=== PATIENT | male | born 1940 | race Caucasian/White ===

== ENCOUNTER → 2016-10-16 12:20 | Outpatient (CLI) | payer MEDICARE, OTHER ==
[2010-06-03 06:28] VITALS: BMI 34.0
== END | disposition home or self-care (01) ==
LOC: D.RT 12:20
DX: J44.9 Chronic obstructive pulmonary disease, unspecified (principal)

== ENCOUNTER → 2016-11-26 19:28 | Outpatient (CLI) | payer MEDICARE, OTHER ==
[2010-06-03 06:28] VITALS: BMI 34.0
== END | disposition home or self-care (01) ==
LOC: D.SLEEP 19:28
DX: G47.33 Obstructive sleep apnea (adult) (pediatric) (principal)

== ENCOUNTER 2017-07-11 14:52 | Inpatient (IN) | payer MEDICARE, OTHER ==
[~2017-07-11] VITALS: Ht 172.7 cm; Wt 101.2 kg
[2017-07-11 16:07] LABS: BASOPHILS 0.2 % (0-2); EOSINOPHILS 1.5 % (0-7); HEMATOCRIT 25.3 % (42.0-54.0); HEMOGLOBIN 7.7 g/dL (13.5-17.5); IMMATURE GRANULOCYTES 0.2 % (0-5); LYMPHOCYTES 11.6 % (15-50); MCH 28.6 pg (26.0-34.0); MCHC 30.4 g/dL (31.0-37.0); MCV 94.1 fL (80.0-100.0); MEAN PLATELET VOLUME 9.1 fL (7.4-10.4); MONOCYTES 13.5 % (2-11); PLATELET COUNT 228 10x3/uL (130-400); RBC 2.69 10x6/uL (4.20-6.10); RDW 13.7 % (11.5-14.5); WBC 5.4 10x3/uL (4.8-10.8)
[2017-07-11 16:32] LABS: ALBUMIN 3.2 g/dL (3.4-5.0); ANION GAP 6.1 mmol/L (8-16); BILIRUBIN - TOTAL 0.29 mg/dL (0.2-1.3); CALCIUM 8.7 mg/dL (8.5-10.1); CARBON DIOXIDE 39.1 mmol/L (21.0-32.0); CREATININE - SERUM 1.1 mg/dL (0.6-1.3); POTASSIUM - SERUM 4.2 mmol/L (3.5-5.1); PROTEIN - SERUM 6.7 g/dL (6.4-8.2)
[2017-07-11 16:33] LABS: APPEARANCE CLEAR (CLEAR); BILIRUBIN NEGATIVE (NEGATIVE); COLOR YELLOW (YELLOW); GLUCOSE NEGATIVE (NEGATIVE); KETONE NEGATIVE (NEGATIVE); NITRITE NEGATIVE (NEGATIVE); PH 6.5 (5.0-6.0); PROTEIN NEGATIVE (NEGATIVE); UROBILINOGEN NORMAL (NORMAL)
[2017-07-11 16:37] LABS: APTT 26.7 SECONDS (22.8-39.4); INR 1.25 (0.85-1.17); PROTIME 15.2 SECONDS (11.6-15.0)
[2017-07-11] MEDS ORDERED: PULMICORT0.5 MG/21 INH (19:46)
[2017-07-11] MEDS ORDERED: IPRAT-ALBUT 0.5-3 ML UPD (19:47)
[2017-07-11] MEDS ORDERED: VENTOLIN HFA18 GM INH (19:48)
[2017-07-11] MEDS ORDERED: PLAQUENIL200 MG PO ×2 (19:49)
[2017-07-11] MEDS ORDERED: HYZAAR 50-12.51 TAB PO (19:50)
[2017-07-11] MEDS ORDERED: RELAFEN500 MG PO (19:50)
[2017-07-11] MEDS ORDERED: PREDNISONE5 MG PO (19:51)
[2017-07-11] MEDS ORDERED: PRAVACHOL40 MG PO (19:51)
[2017-07-11] MEDS ORDERED: METAMUCIL1042 GM PO (19:53)
[2017-07-11] MEDS ORDERED: MIRALAX527 GM PO (19:53)
[2017-07-11] MEDS ORDERED: PACERONE100 MG PO (19:55)
[2017-07-11] MEDS ORDERED: MUCINEX DM ER1 EAC1 PO (19:55)
[2017-07-11] MEDS ORDERED: CARDIZEM30 MG PO (19:57)
[2017-07-11] MEDS ORDERED: ELIQUIS5 MG PO (19:58)
[2017-07-11 20:16] VITALS: BP 132/65; BMI 34.0
[2017-07-11 21:00] VITALS: BP 115/85
[2017-07-11 21:57] LABS: HEMATOCRIT 23.1 % (42.0-54.0)
[2017-07-11 21:58] LABS: HEMOGLOBIN 7.1 g/dL (13.5-17.5)
[2017-07-11 22:00] VITALS: BP 127/59
[2017-07-11 23:00] VITALS: BP 109/53
[2017-07-12] VITALS (12 sets, daily range): BP systolic 103–139; BP diastolic 45–83
[2017-07-12 03:27] LABS: HEMATOCRIT 26.2 % (42.0-54.0); HEMOGLOBIN 8.1 g/dL (13.5-17.5)
[2017-07-12 03:35] LABS: INR 1.18 (0.85-1.17); PROTIME 14.6 SECONDS (11.6-15.0)
[2017-07-12 09:59] LABS: HEMATOCRIT 27.2 % (42.0-54.0); HEMOGLOBIN 8.4 g/dL (13.5-17.5)
[2017-07-12 15:05] LABS: HEMOGLOBIN 8.1 g/dL (13.5-17.5)
[2017-07-12 22:05] LABS: HEMATOCRIT 24.2 % (42.0-54.0)
[2017-07-12 22:08] LABS: HEMOGLOBIN 7.5 g/dL (13.5-17.5)
[2017-07-13] VITALS (12 sets, daily range): BP systolic 101–146; BP diastolic 44–70; Ht 172.7 cm; Wt 101.2 kg
[2017-07-13 04:28] LABS: HEMATOCRIT 26.4 % (42.0-54.0); HEMOGLOBIN 8.1 g/dL (13.5-17.5)
[2017-07-13 04:37] LABS: APTT 25.7 SECONDS (22.8-39.4); INR 1.12 (0.85-1.17)
[2017-07-13 09:54] LABS: HEMATOCRIT 25.8 % (42.0-54.0)
[2017-07-13 10:08] LABS: BASOPHILS 0.2 % (0-2); EOSINOPHILS 2.3 % (0-7); IMMATURE GRANULOCYTES 0.2 % (0-5); LYMPHOCYTES 13.4 % (15-50); MCH 28.4 pg (26.0-34.0); MCHC 30.9 g/dL (31.0-37.0); MEAN PLATELET VOLUME 9.3 fL (7.4-10.4); MONOCYTES 11.7 % (2-11); NEUTROPHILS 72.2 % (40-80); PLATELET COUNT 203 10x3/uL (130-400); RBC 2.82 10x6/uL (4.20-6.10); RDW 14.5 % (11.5-14.5); WBC 6.5 10x3/uL (4.8-10.8)
[2017-07-13 10:17] LABS: ALBUMIN 2.7 g/dL (3.4-5.0); ANION GAP 5.8 mmol/L (8-16); BILIRUBIN - TOTAL 0.3 mg/dL (0.2-1.3); CALCIUM 8.3 mg/dL (8.5-10.1); CARBON DIOXIDE 39.1 mmol/L (21.0-32.0); CREATININE - SERUM 1.2 mg/dL (0.6-1.3); POTASSIUM - SERUM 3.9 mmol/L (3.5-5.1); PROTEIN - SERUM 6.1 g/dL (6.4-8.2)
[2017-07-13 10:20] LABS: MCV 91.8 fL (80.0-100.0)
[2017-07-13 15:29] LABS: HEMATOCRIT 25.8 % (42.0-54.0); HEMOGLOBIN 7.9 g/dL (13.5-17.5)
[2017-07-13 21:38] LABS: HEMATOCRIT 24.6 % (42.0-54.0); HEMOGLOBIN 7.6 g/dL (13.5-17.5)
[2017-07-14] VITALS: BP 112/61
[2017-07-14 04:00] VITALS: BP 117/49
[2017-07-14 05:29] LABS: BASOPHILS 0.2 % (0-2); EOSINOPHILS 2.4 % (0-7); HEMATOCRIT 23.9 % (42.0-54.0); IMMATURE GRANULOCYTES 0.2 % (0-5); LYMPHOCYTES 21.2 % (15-50); MCH 27.5 pg (26.0-34.0); MCHC 29.7 g/dL (31.0-37.0); MCV 92.6 fL (80.0-100.0); MEAN PLATELET VOLUME 9.3 fL (7.4-10.4); MONOCYTES 19.7 % (2-11); NEUTROPHILS 56.3 % (40-80); PLATELET COUNT 186 10x3/uL (130-400); RBC 2.58 10x6/uL (4.20-6.10); RDW 14.2 % (11.5-14.5)
[2017-07-14 05:42] LABS: WBC 4.6 10x3/uL (4.8-10.8)
[2017-07-14 05:43] LABS: HEMOGLOBIN 7.1 g/dL (13.5-17.5)
[2017-07-14 05:48] LABS: ALBUMIN 2.5 g/dL (3.4-5.0); ALKALINE PHOSPHATASE 54 U/L (46-116); ALT (SGPT) 26 U/L (10-68); BILIRUBIN - TOTAL 0.23 mg/dL (0.2-1.3); CALC OSMOLALITY 288 mosm/kg (275-300); CALCIUM 7.6 mg/dL (8.5-10.1); CARBON DIOXIDE 39.5 mmol/L (21.0-32.0); CHLORIDE - SERUM 104 mmol/L (98-107); GLUCOSE 86 mg/dL (74-106); INR 1.21 (0.85-1.17); POTASSIUM - SERUM 4.1 mmol/L (3.5-5.1); PROTEIN - SERUM 5.7 g/dL (6.4-8.2); PROTIME 14.8 SECONDS (11.6-15.0); SODIUM 143 mmol/L (136-145); UREA NITROGEN 27 mg/dL (7-18); eGFR NON AFRICAN AMERICAN 77 mL/min (90-120)
[2017-07-14 08:11] VITALS: BP 112/63
[2017-07-14] MEDS ORDERED: PROTONIX40 MG PO (11:12)
== END 2017-07-14 15:28 | disposition home or self-care (01) | DRG 394 ==
LOC: D.ER 14:52 → D.MS 18:06 → D.ICU 18:06 → D.MS 07-12 13:35
PROVIDERS: Family Medicine; Internal Medicine Gastroenterology; Internal Medicine Nephrology; Nurse Practitioner Family
PROC: 0W3P8ZZ Control Bleeding in Gastrointestinal Tract, Via Natural or Artificial Opening Endoscopic (ICD-10-PCS; 2017-07-13)
PROC: 0DB68ZZ Excision of Stomach, Via Natural or Artificial Opening Endoscopic (ICD-10-PCS; 2017-07-13)
PROC: 3E0G8GC Introduction of Other Therapeutic Substance into Upper GI, Via Natural or Artificial Opening Endoscopic (ICD-10-PCS; principal; 2017-07-13 07:39)
DX: K31.7 Polyp of stomach and duodenum (principal); D62 Acute posthemorrhagic anemia; K44.9 Diaphragmatic hernia without obstruction or gangrene; J44.9 Chronic obstructive pulmonary disease, unspecified; I11.0 Hypertensive heart disease with heart failure; I50.9 Heart failure, unspecified; I48.91 Unspecified atrial fibrillation; Z79.01 Long term (current) use of anticoagulants; M06.9 Rheumatoid arthritis, unspecified

== ENCOUNTER 2017-07-17 14:46 | Inpatient (IN) | payer MEDICARE, OTHER ==
[~2017-07-17] VITALS: Ht 172.7 cm; Wt 99.3 kg
[2017-07-17] VITALS (10 sets, daily range): BP systolic 104–122; BP diastolic 55–110; BMI 33.5
[~2017-07-17 14:46] MED LIST: CARDIZEM30 MG PO; ELIQUIS5 MG PO; HYZAAR 50-12.51 TAB PO; IPRAT-ALBUT 0.5-3 ML UPD; METAMUCIL1042 GM PO; MIRALAX527 GM PO; MUCINEX DM ER1 EAC1 PO; PACERONE100 MG PO; PLAQUENIL200 MG PO; PRAVACHOL40 MG PO; PREDNISONE5 MG PO; PROTONIX40 MG PO; PULMICORT0.5 MG/21 INH; RELAFEN500 MG PO; VENTOLIN HFA18 GM INH
[2017-07-17 15:18] LABS: BASOPHILS 0.1 % (0-2); EOSINOPHILS 0.6 % (0-7); HEMATOCRIT 23.8 % (42.0-54.0); IMMATURE GRANULOCYTES 0.1 % (0-5); LYMPHOCYTES 8.9 % (15-50); MCH 27.8 pg (26.0-34.0); MCHC 30.3 g/dL (31.0-37.0); MCV 91.9 fL (80.0-100.0); MEAN PLATELET VOLUME 9.5 fL (7.4-10.4); MONOCYTES 16.3 % (2-11); PLATELET COUNT 182 10x3/uL (130-400); RBC 2.59 10x6/uL (4.20-6.10); RDW 14.7 % (11.5-14.5); WBC 8.6 10x3/uL (4.8-10.8)
[2017-07-17 15:49] LABS: HEMOGLOBIN 7.2 g/dL (13.5-17.5)
[2017-07-17 16:04] LABS: AMYLASE - SERUM 53 U/L (25-115); LIPASE 193 U/L (73-393)
[2017-07-17 16:11] LABS: ALBUMIN 2.8 g/dL (3.4-5.0); ALKALINE PHOSPHATASE 51 U/L (46-116); ALT (SGPT) 26 U/L (10-68); CALC OSMOLALITY 281 mosm/kg (275-300); CALCIUM 8.2 mg/dL (8.5-10.1); CARBON DIOXIDE 36.5 mmol/L (21.0-32.0); CHLORIDE - SERUM 100 mmol/L (98-107); GLUCOSE 112 mg/dL (74-106); POTASSIUM - SERUM 4.5 mmol/L (3.5-5.1); PROTEIN - SERUM 6.4 g/dL (6.4-8.2); SODIUM 139 mmol/L (136-145); UREA NITROGEN 21 mg/dL (7-18); eGFR NON AFRICAN AMERICAN 77 mL/min (90-120)
[2017-07-17 16:15] LABS: APTT 30.6 SECONDS (22.8-39.4); INR 1.33 (0.85-1.17); PROTIME 16.1 SECONDS (11.6-15.0)
[2017-07-17 16:24] LABS: CKMB 1.7 U/L (0.0-3.6); CREATINE KINASE 69 UL (21-232); TROPONIN-I < 0.017 ng/mL (0.000-0.060)
[2017-07-17 18:26] LABS: HEMATOCRIT 25.1 % (42.0-54.0)
[2017-07-17 18:28] LABS: HEMOGLOBIN 7.5 g/dL (13.5-17.5)
[2017-07-18] VITALS (31 sets, daily range): BP systolic 101–133; BP diastolic 52–91; BMI 33.4
[2017-07-18 01:02] LABS: HEMATOCRIT 27.7 % (42.0-54.0); HEMOGLOBIN 8.6 g/dL (13.5-17.5)
[2017-07-18 04:08] LABS: BASOPHILS 0.1 % (0-2); EOSINOPHILS 1.1 % (0-7); HEMATOCRIT 26.7 % (42.0-54.0); HEMOGLOBIN 8.2 g/dL (13.5-17.5); IMMATURE GRANULOCYTES 0.2 % (0-5); LYMPHOCYTES 13.5 % (15-50); MCH 28.2 pg (26.0-34.0); MCHC 30.7 g/dL (31.0-37.0); MCV 91.8 fL (80.0-100.0); MEAN PLATELET VOLUME 9.3 fL (7.4-10.4); MONOCYTES 13.4 % (2-11); NEUTROPHILS 71.7 % (40-80); PLATELET COUNT 155 10x3/uL (130-400); RBC 2.91 10x6/uL (4.20-6.10); RDW 15.5 % (11.5-14.5); WBC 8.1 10x3/uL (4.8-10.8)
[2017-07-18 04:24] LABS: ALBUMIN 2.9 g/dL (3.4-5.0); ALKALINE PHOSPHATASE 56 U/L (46-116); ALT (SGPT) 24 U/L (10-68); BILIRUBIN - TOTAL 0.77 mg/dL (0.2-1.3); CALC OSMOLALITY 288 mosm/kg (275-300); CHLORIDE - SERUM 101 mmol/L (98-107); GLUCOSE 92 mg/dL (74-106); POTASSIUM - SERUM 4.1 mmol/L (3.5-5.1); PROTEIN - SERUM 6.5 g/dL (6.4-8.2); SODIUM 144 mmol/L (136-145); UREA NITROGEN 18 mg/dL (7-18); eGFR NON AFRICAN AMERICAN 77 mL/min (90-120)
[2017-07-18 04:29] LABS: CARBON DIOXIDE 41.9 mmol/L (21.0-32.0)
[2017-07-18 05:01] LABS: INR 1.13 (0.85-1.17); PROTIME 14.1 SECONDS (11.6-15.0)
[2017-07-18] MEDS ORDERED: ZITHROMAX250 MG PO (10:08)
[2017-07-18 11:25] LABS: HEMATOCRIT 27.5 % (42.0-54.0); HEMOGLOBIN 8.7 g/dL (13.5-17.5)
[2017-07-18 17:27] LABS: HEMATOCRIT 28.8 % (42.0-54.0); HEMOGLOBIN 8.9 g/dL (13.5-17.5)
[2017-07-18 23:34] LABS: HEMATOCRIT 28.8 % (42.0-54.0); HEMOGLOBIN 8.6 g/dL (13.5-17.5)
[2017-07-19] VITALS (24 sets, daily range): BP systolic 99–156; BP diastolic 52–133
[2017-07-19 06:29] LABS: BASOPHILS 0.3 % (0-2); EOSINOPHILS 1.1 % (0-7); HEMATOCRIT 28.8 % (42.0-54.0); HEMOGLOBIN 8.8 g/dL (13.5-17.5); IMMATURE GRANULOCYTES 0.3 % (0-5); LYMPHOCYTES 10.8 % (15-50); MCH 28.3 pg (26.0-34.0); MCHC 30.6 g/dL (31.0-37.0); MCV 92.6 fL (80.0-100.0); MEAN PLATELET VOLUME 9.7 fL (7.4-10.4); MONOCYTES 18.8 % (2-11); NEUTROPHILS 68.7 % (40-80); PLATELET COUNT 153 10x3/uL (130-400); RBC 3.11 10x6/uL (4.20-6.10); RDW 16.1 % (11.5-14.5); WBC 7.5 10x3/uL (4.8-10.8)
[2017-07-19 06:34] LABS: ALBUMIN 2.6 g/dL (3.4-5.0); ALKALINE PHOSPHATASE 52 U/L (46-116); ALT (SGPT) 27 U/L (10-68); CALC OSMOLALITY 282 mosm/kg (275-300); CALCIUM 7.8 mg/dL (8.5-10.1); CARBON DIOXIDE 38.9 mmol/L (21.0-32.0); CHLORIDE - SERUM 99 mmol/L (98-107); CREATININE - SERUM 0.8 mg/dL (0.6-1.3); GLUCOSE 91 mg/dL (74-106); POTASSIUM - SERUM 4.4 mmol/L (3.5-5.1); PROTEIN - SERUM 6.4 g/dL (6.4-8.2); SODIUM 141 mmol/L (136-145); UREA NITROGEN 18 mg/dL (7-18); eGFR NON AFRICAN AMERICAN > 90 mL/min (90-120)
[2017-07-19 11:29] LABS: HEMATOCRIT 29.9 % (42.0-54.0); HEMOGLOBIN 8.9 g/dL (13.5-17.5)
[2017-07-19 15:51] LABS: COLOR YELLOW (YELLOW)
[2017-07-19 15:52] LABS: APPEARANCE CLEAR (CLEAR); BILIRUBIN NEGATIVE (NEGATIVE); GLUCOSE NEGATIVE (NEGATIVE); KETONE NEGATIVE (NEGATIVE); NITRITE NEGATIVE (NEGATIVE); PROTEIN NEGATIVE (NEGATIVE); UROBILINOGEN NORMAL (NORMAL)
[2017-07-19 16:00] LABS: BACTERIA FEW /hpf (NONE SEEN); EPITHELIAL CELLS 0-5 /hpf (0-5); WHITE CELLS - URINE 0-5 /hpf (0-5)
[2017-07-19 17:35] LABS: HEMATOCRIT 28.5 % (42.0-54.0); HEMOGLOBIN 8.5 g/dL (13.5-17.5)
[2017-07-19 23:30] LABS: HEMATOCRIT 26.9 % (42.0-54.0); HEMOGLOBIN 8.2 g/dL (13.5-17.5)
[2017-07-20] VITALS (27 sets, daily range): BP systolic 94–132; BP diastolic 40–82
[2017-07-20 03:58] LABS: BASOPHILS 0.2 % (0-2); EOSINOPHILS 0 % (0-7); HEMATOCRIT 25.6 % (42.0-54.0); HEMOGLOBIN 7.7 g/dL (13.5-17.5); IMMATURE GRANULOCYTES 0.2 % (0-5); LYMPHOCYTES 6.5 % (15-50); MCH 28.2 pg (26.0-34.0); MCHC 30.1 g/dL (31.0-37.0); MCV 93.8 fL (80.0-100.0); MEAN PLATELET VOLUME 9.8 fL (7.4-10.4); MONOCYTES 5.3 % (2-11); NEUTROPHILS 87.8 % (40-80); PLATELET COUNT 168 10x3/uL (130-400); RBC 2.73 10x6/uL (4.20-6.10); RDW 15.3 % (11.5-14.5)
[2017-07-20 04:01] LABS: WBC 5.1 10x3/uL (4.8-10.8)
[2017-07-20 04:27] LABS: ALBUMIN 2.5 g/dL (3.4-5.0); ALKALINE PHOSPHATASE 52 U/L (46-116); ALT (SGPT) 26 U/L (10-68); BILIRUBIN - TOTAL 0.53 mg/dL (0.2-1.3); CHLORIDE - SERUM 96 mmol/L (98-107); CREATININE - SERUM 0.9 mg/dL (0.6-1.3); MAGNESIUM - SERUM 2.2 mg/dL (1.8-2.4); PHOSPHOROUS 2.9 mg/dL (2.5-4.9); POTASSIUM - SERUM 4.7 mmol/L (3.5-5.1); PRO BNP 532 pg/mL (0-450); PROTEIN - SERUM 6.1 g/dL (6.4-8.2); SODIUM 141 mmol/L (136-145); UREA NITROGEN 20 mg/dL (7-18); eGFR NON AFRICAN AMERICAN 87 mL/min (90-120)
[2017-07-20 04:35] LABS: CALC OSMOLALITY 286 mosm/kg (275-300); CARBON DIOXIDE 41.7 mmol/L (21.0-32.0); GLUCOSE 146 mg/dL (74-106)
[2017-07-20 17:16] LABS: HEMATOCRIT 30.2 % (42.0-54.0); HEMOGLOBIN 9.4 g/dL (13.5-17.5)
[2017-07-20 22:35] LABS: HEMATOCRIT 27.4 % (42.0-54.0); HEMOGLOBIN 8.5 g/dL (13.5-17.5)
[2017-07-21] VITALS (21 sets, daily range): BP systolic 110–189; BP diastolic 13–94
[2017-07-21 04:33] LABS: BASOPHILS 0 % (0-2); EOSINOPHILS 0 % (0-7); HEMOGLOBIN 8.5 g/dL (13.5-17.5); IMMATURE GRANULOCYTES 0.3 % (0-5); LYMPHOCYTES 4.5 % (15-50); MCH 28.2 pg (26.0-34.0); MCHC 30.4 g/dL (31.0-37.0); MEAN PLATELET VOLUME 9.8 fL (7.4-10.4); MONOCYTES 5.6 % (2-11); NEUTROPHILS 89.6 % (40-80); PLATELET COUNT 183 10x3/uL (130-400); RBC 3.01 10x6/uL (4.20-6.10); RDW 15.6 % (11.5-14.5)
[2017-07-21 04:39] LABS: WBC 6.7 10x3/uL (4.8-10.8)
[2017-07-21 05:00] LABS: ALBUMIN 2.6 g/dL (3.4-5.0); BILIRUBIN - TOTAL 0.44 mg/dL (0.2-1.3); CALCIUM 8.1 mg/dL (8.5-10.1); CARBON DIOXIDE 37.7 mmol/L (21.0-32.0); CREATININE - SERUM 1.1 mg/dL (0.6-1.3); PROTEIN - SERUM 6.1 g/dL (6.4-8.2)
[2017-07-21 05:01] LABS: POTASSIUM - SERUM 3.7 mmol/L (3.5-5.1)
[2017-07-21 10:38] LABS: HEMATOCRIT 28.2 % (42.0-54.0); HEMOGLOBIN 8.7 g/dL (13.5-17.5)
[2017-07-21 16:34] LABS: HEMATOCRIT 28.2 % (42.0-54.0); HEMOGLOBIN 8.7 g/dL (13.5-17.5)
[2017-07-21 22:56] LABS: HEMATOCRIT 26.1 % (42.0-54.0)
[2017-07-22] VITALS (17 sets, daily range): BP systolic 115–145; BP diastolic 60–84
[2017-07-22 06:56] LABS: BASOPHILS 0 % (0-2); EOSINOPHILS 0 % (0-7); HEMATOCRIT 28.6 % (42.0-54.0); HEMOGLOBIN 9.2 g/dL (13.5-17.5); IMMATURE GRANULOCYTES 0.1 % (0-5); LYMPHOCYTES 4.9 % (15-50); MCH 29.8 pg (26.0-34.0); MCHC 32.2 g/dL (31.0-37.0); MCV 92.6 fL (80.0-100.0); MEAN PLATELET VOLUME 9.3 fL (7.4-10.4); MONOCYTES 5.1 % (2-11); NEUTROPHILS 89.9 % (40-80); PLATELET COUNT 197 10x3/uL (130-400); RBC 3.09 10x6/uL (4.20-6.10); RDW 15.6 % (11.5-14.5); WBC 7.3 10x3/uL (4.8-10.8)
[2017-07-22 07:16] LABS: ALBUMIN 2.7 g/dL (3.4-5.0); ALKALINE PHOSPHATASE 48 U/L (46-116); ALT (SGPT) 26 U/L (10-68); CALC OSMOLALITY 294 mosm/kg (275-300); CALCIUM 8.4 mg/dL (8.5-10.1); CARBON DIOXIDE 33.4 mmol/L (21.0-32.0); CHLORIDE - SERUM 105 mmol/L (98-107); GLUCOSE 143 mg/dL (74-106); MAGNESIUM - SERUM 2.3 mg/dL (1.8-2.4); PHOSPHOROUS 4.5 mg/dL (2.5-4.9); POTASSIUM - SERUM 4.1 mmol/L (3.5-5.1); PROTEIN - SERUM 6.3 g/dL (6.4-8.2); SODIUM 143 mmol/L (136-145); eGFR NON AFRICAN AMERICAN 77 mL/min (90-120)
[2017-07-22 07:17] LABS: UREA NITROGEN 34 mg/dL (7-18)
[2017-07-22 07:20] LABS: INR 1.13 (0.85-1.17); PROTIME 14.1 SECONDS (11.6-15.0)
[2017-07-23 04:00] VITALS: BP 156/70
[2017-07-23 05:56] LABS: BASOPHILS 0 % (0-2); EOSINOPHILS 0 % (0-7); HEMATOCRIT 26.5 % (42.0-54.0); HEMOGLOBIN 8.2 g/dL (13.5-17.5); IMMATURE GRANULOCYTES 0.3 % (0-5); LYMPHOCYTES 8.1 % (15-50); MCH 28.5 pg (26.0-34.0); MCHC 30.9 g/dL (31.0-37.0); MEAN PLATELET VOLUME 9.6 fL (7.4-10.4); MONOCYTES 12.1 % (2-11); NEUTROPHILS 79.5 % (40-80); PLATELET COUNT 196 10x3/uL (130-400); RBC 2.88 10x6/uL (4.20-6.10); RDW 15.7 % (11.5-14.5); WBC 6.4 10x3/uL (4.8-10.8)
[2017-07-23 06:25] LABS: CALC OSMOLALITY 298 mosm/kg (275-300); CALCIUM 8.3 mg/dL (8.5-10.1); CARBON DIOXIDE 33.9 mmol/L (21.0-32.0); CHLORIDE - SERUM 107 mmol/L (98-107); GLUCOSE 112 mg/dL (74-106); POTASSIUM - SERUM 3.9 mmol/L (3.5-5.1); SODIUM 145 mmol/L (136-145); UREA NITROGEN 37 mg/dL (7-18); eGFR NON AFRICAN AMERICAN 77 mL/min (90-120)
[2017-07-23 09:35] VITALS: BP 162/72
[2017-07-23 15:34] LABS: INR 1.53 (0.85-1.17); PROTIME 17.9 SECONDS (11.6-15.0)
[2017-07-23 18:42] VITALS: BP 136/64
[2017-07-23 20:00] VITALS: BP 116/49
[2017-07-24] VITALS: BP 143/73
[2017-07-24 04:00] VITALS: BP 140/72
[2017-07-24 06:07] LABS: BASOPHILS 0 % (0-2); EOSINOPHILS 0 % (0-7); HEMATOCRIT 27.9 % (42.0-54.0); HEMOGLOBIN 8.6 g/dL (13.5-17.5); IMMATURE GRANULOCYTES 0.1 % (0-5); LYMPHOCYTES 4.9 % (15-50); MCH 28.4 pg (26.0-34.0); MCHC 30.8 g/dL (31.0-37.0); MCV 92.1 fL (80.0-100.0); MEAN PLATELET VOLUME 9.6 fL (7.4-10.4); MONOCYTES 4.4 % (2-11); NEUTROPHILS 90.6 % (40-80); RBC 3.03 10x6/uL (4.20-6.10); RDW 15.6 % (11.5-14.5); WBC 7.5 10x3/uL (4.8-10.8)
[2017-07-24 06:08] LABS: PLATELET COUNT 252 10x3/uL (130-400)
[2017-07-24 06:10] LABS: ANION GAP 8.2 mmol/L (8-16); CALCIUM 8.5 mg/dL (8.5-10.1); CREATININE - SERUM 1.1 mg/dL (0.6-1.3); POTASSIUM - SERUM 4.2 mmol/L (3.5-5.1)
[2017-07-24 06:26] LABS: INR 2.24 (0.85-1.17); PROTIME 24.2 SECONDS (11.6-15.0)
[2017-07-24 09:35] VITALS: BP 139/74
[2017-07-24 12:26] VITALS: BP 130/70
[2017-07-24 16:57] VITALS: BP 138/60
[2017-07-24 17:36] VITALS: Ht 172.7 cm; Wt 99.3 kg
[2017-07-24 21:06] VITALS: BP 136/68
[2017-07-25 01:38] VITALS: BP 151/111
[2017-07-25 05:05] VITALS: BP 148/90
[2017-07-25 05:14] LABS: BASOPHILS 0 % (0-2); EOSINOPHILS 0 % (0-7); HEMATOCRIT 26.8 % (42.0-54.0); HEMOGLOBIN 8.1 g/dL (13.5-17.5); IMMATURE GRANULOCYTES 0.2 % (0-5); MCHC 30.2 g/dL (31.0-37.0); MCV 92.7 fL (80.0-100.0); MEAN PLATELET VOLUME 9.3 fL (7.4-10.4); MONOCYTES 4.8 % (2-11); PLATELET COUNT 257 10x3/uL (130-400); RBC 2.89 10x6/uL (4.20-6.10); RDW 15.5 % (11.5-14.5); WBC 5.8 10x3/uL (4.8-10.8)
[2017-07-25 05:36] LABS: CALC OSMOLALITY 295 mosm/kg (275-300); CALCIUM 8.2 mg/dL (8.5-10.1); CARBON DIOXIDE 36.2 mmol/L (21.0-32.0); CHLORIDE - SERUM 103 mmol/L (98-107); CREATININE - SERUM 0.9 mg/dL (0.6-1.3); GLUCOSE 129 mg/dL (74-106); MAGNESIUM - SERUM 2.3 mg/dL (1.8-2.4); SODIUM 144 mmol/L (136-145); UREA NITROGEN 31 mg/dL (7-18); eGFR NON AFRICAN AMERICAN 87 mL/min (90-120)
[2017-07-25 05:55] LABS: PRO BNP 488 pg/mL (0-450)
[2017-07-25 06:06] LABS: PHOSPHOROUS 3.9 mg/dL (2.5-4.9)
[2017-07-25 08:27] VITALS: BP 135/53
[2017-07-25 09:58] LABS: INR 2.5 (0.85-1.17); PROTIME 26.4 SECONDS (11.6-15.0)
[2017-07-25 11:12] VITALS: BP 138/62
[2017-07-25 16:18] VITALS: BP 138/72
[2017-07-26 08:00] LABS: BASOPHILS 0 % (0-2); EOSINOPHILS 0 % (0-7); HEMATOCRIT 25.2 % (42.0-54.0); HEMOGLOBIN 7.6 g/dL (13.5-17.5); IMMATURE GRANULOCYTES 0.2 % (0-5); LYMPHOCYTES 5.1 % (15-50); MCHC 30.2 g/dL (31.0-37.0); MEAN PLATELET VOLUME 9.3 fL (7.4-10.4); MONOCYTES 7.6 % (2-11); NEUTROPHILS 87.1 % (40-80); PLATELET COUNT 271 10x3/uL (130-400); RBC 2.71 10x6/uL (4.20-6.10); RDW 15.4 % (11.5-14.5)
[2017-07-26 08:05] LABS: WBC 8.2 10x3/uL (4.8-10.8)
[2017-07-26 08:09] LABS: INR 1.84 (0.85-1.17); PROTIME 20.7 SECONDS (11.6-15.0)
[2017-07-26 08:10] LABS: CALC OSMOLALITY 290 mosm/kg (275-300); CALCIUM 8.3 mg/dL (8.5-10.1); CARBON DIOXIDE 38.3 mmol/L (21.0-32.0); CHLORIDE - SERUM 107 mmol/L (98-107); CREATININE - SERUM 0.9 mg/dL (0.6-1.3); GLUCOSE 124 mg/dL (74-106); POTASSIUM - SERUM 4.1 mmol/L (3.5-5.1); SODIUM 143 mmol/L (136-145); UREA NITROGEN 27 mg/dL (7-18); eGFR NON AFRICAN AMERICAN 87 mL/min (90-120)
[2017-07-26 09:27] VITALS: BP 119/56
[2017-07-26 12:09] VITALS: BP 126/65
[2017-07-26 15:05] VITALS: BP 146/71
[2017-07-26 20:00] VITALS: BP 148/79
[2017-07-27] VITALS: BP 146/70
[2017-07-27 04:00] VITALS: BP 134/603
[2017-07-27 06:57] LABS: INR 1.56 (0.85-1.17); PROTIME 18.2 SECONDS (11.6-15.0)
[2017-07-27 06:59] LABS: BASOPHILS 0 % (0-2); EOSINOPHILS 0 % (0-7); HEMATOCRIT 28.2 % (42.0-54.0); HEMOGLOBIN 8.4 g/dL (13.5-17.5); IMMATURE GRANULOCYTES 0.2 % (0-5); LYMPHOCYTES 4.8 % (15-50); MCH 28.2 pg (26.0-34.0); MCHC 29.8 g/dL (31.0-37.0); MCV 94.6 fL (80.0-100.0); MEAN PLATELET VOLUME 9.6 fL (7.4-10.4); MONOCYTES 5.1 % (2-11); NEUTROPHILS 89.9 % (40-80); PLATELET COUNT 345 10x3/uL (130-400); RBC 2.98 10x6/uL (4.20-6.10); RDW 15.4 % (11.5-14.5); WBC 8.7 10x3/uL (4.8-10.8)
[2017-07-27 07:02] LABS: CALC OSMOLALITY 291 mosm/kg (275-300); CALCIUM 8.3 mg/dL (8.5-10.1); CARBON DIOXIDE 37.7 mmol/L (21.0-32.0); CHLORIDE - SERUM 103 mmol/L (98-107); CREATININE - SERUM 0.8 mg/dL (0.6-1.3); GLUCOSE 128 mg/dL (74-106); POTASSIUM - SERUM 4.2 mmol/L (3.5-5.1); SODIUM 143 mmol/L (136-145); UREA NITROGEN 27 mg/dL (7-18); eGFR NON AFRICAN AMERICAN > 90 mL/min (90-120)
[2017-07-27 08:25] VITALS: BP 133/68
[2017-07-27 11:02] VITALS: BP 126/77
[2017-07-27] MEDS ORDERED: PROTONIX40 MG PO (15:17)
[2017-07-27] MEDS ORDERED: CARAFATE1 G/10 ML PO (15:17)
[2017-07-27] MEDS ORDERED: PREDNISONE10 MG PO (15:18)
== END 2017-07-27 20:04 | disposition home health service (06) | DRG 377 ==
LOC: D.ER 14:46 → D.EDHOLD 20:00 → D.M2 20:00 → D.ICU 20:00 → D.M2 07-22 21:28 → D.SDCHOLD 07-27 13:01 → D.M2 07-27 20:04
PROVIDERS: Family Medicine; Internal Medicine Gastroenterology; Internal Medicine Nephrology; Internal Medicine Pulmonary Disease
PROC: 0W3P8ZZ Control Bleeding in Gastrointestinal Tract, Via Natural or Artificial Opening Endoscopic (ICD-10-PCS; 2017-07-17)
PROC: 5A09357 Assistance with Respiratory Ventilation, Less than 24 Consecutive Hours, Continuous Positive Airway Pressure (ICD-10-PCS; principal; 2017-07-19)
PROC: 3E0G8TZ Introduction of Destructive Agent into Upper GI, Via Natural or Artificial Opening Endoscopic (ICD-10-PCS; 2017-07-24)
PROC: 0W3P8ZZ Control Bleeding in Gastrointestinal Tract, Via Natural or Artificial Opening Endoscopic (ICD-10-PCS; 2017-07-24)
DX: K25.4 Chronic or unspecified gastric ulcer with hemorrhage (principal); J96.22 Acute and chronic respiratory failure with hypercapnia; J96.21 Acute and chronic respiratory failure with hypoxia; D62 Acute posthemorrhagic anemia; K31.7 Polyp of stomach and duodenum; G47.33 Obstructive sleep apnea (adult) (pediatric); J44.9 Chronic obstructive pulmonary disease, unspecified; I11.0 Hypertensive heart disease with heart failure; I50.9 Heart failure, unspecified; I25.10 Atherosclerotic heart disease of native coronary artery without angina pectoris; I48.91 Unspecified atrial fibrillation; K21.9 Gastro-esophageal reflux disease without esophagitis; Z95.1 Presence of aortocoronary bypass graft; Z95.2 Presence of prosthetic heart valve; Z79.01 Long term (current) use of anticoagulants; I27.20 Pulmonary hypertension, unspecified; E78.5 Hyperlipidemia, unspecified; Z99.81 Dependence on supplemental oxygen; M06.9 Rheumatoid arthritis, unspecified; M10.9 Gout, unspecified

== ENCOUNTER → 2017-08-04 11:33 | Outpatient (CLI) | payer MEDICARE, OTHER ==
[2017-07-24 17:36] VITALS: BMI 33.4
[~2017-08-04 11:33] MED LIST changes: +CARAFATE1 G/10 ML PO; +PREDNISONE10 MG PO; +ZITHROMAX250 MG PO
[2017-08-04 12:26] LABS: APPEARANCE CLEAR (CLEAR); BILIRUBIN NEGATIVE (NEGATIVE); COLOR YELLOW (YELLOW); GLUCOSE NEGATIVE (NEGATIVE); KETONE NEGATIVE (NEGATIVE); NITRITE NEGATIVE (NEGATIVE); PROTEIN NEGATIVE (NEGATIVE); SPECIFIC GRAVITY 1.005 (1.005-1.020); UROBILINOGEN NORMAL (NORMAL)
== END | disposition home or self-care (01) ==
LOC: D.LABREF 11:33
PROVIDERS: Family Medicine
DX: N39.0 Urinary tract infection, site not specified (principal)

== ENCOUNTER → 2017-08-06 09:36 | Outpatient (CLI) | payer MEDICARE, OTHER ==
[2017-07-24 17:36] VITALS: BMI 33.4
== END | disposition home or self-care (01) ==
LOC: D.CN 09:00
DX: I25.10 Atherosclerotic heart disease of native coronary artery without angina pectoris (principal); J44.9 Chronic obstructive pulmonary disease, unspecified; I10 Essential (primary) hypertension

== ENCOUNTER → 2017-09-09 12:50 | Outpatient (CLI) | payer MEDICARE, OTHER ==
[2017-07-24 17:36] VITALS: BMI 33.4
== END | disposition home or self-care (01) ==
LOC: D.RAD 12:50
DX: J44.9 Chronic obstructive pulmonary disease, unspecified (principal)

== ENCOUNTER → 2017-12-10 09:51 | Outpatient (CLI) | payer MEDICARE, OTHER ==
[2017-07-24 17:36] VITALS: BMI 33.4
== END | disposition home or self-care (01) ==
LOC: D.RT 09:51
DX: I25.10 Atherosclerotic heart disease of native coronary artery without angina pectoris (principal)

== ENCOUNTER 2018-01-30 17:17 | Inpatient (IN) | payer MEDICARE, OTHER ==
[2018-01-30] VITALS (7 sets, daily range): BP systolic 118–127; BP diastolic 41–66; BMI 32.1
[~2018-01-30] VITALS: Ht 172.7 cm; Wt 95.9 kg
--- NOTE | ~2018-01-30 | MORECARE ---
CASE MANAGEMENT DISCHARGE SUMMARY PATIENT: SEGUN ALEX UNIT: [id number] ADM DATE: 01/30/18 AGE: 77 : 41 SEX: M ROOM/BED: D.7787 AUTHOR: ROGELIODOC PHYSICIAN: REFERRING PHYSICIAN: BRITTNEE KUMAR MD DATE OF SERVICE: 02/04/18 Discharge Plan Patient Name: SEGUN ALEX Facility: [facility]:[place] : 1940 Planned Disposition: Home with Home Health Anticipated Discharge Date: 02/03/18 Discharge Date: 02/03/2018 Expected LOS: 4 Initial Reviewer: [id number] Initial Review Date: 01/30/2018 Generated: 02/04/18 8:45 am Comments DCP- Discharge Planning Updated by [id number]: Kale Baumann on 02/03/18 1:[address] Patient Name: SEGUN ALEX Admission Status: ER Accout number: [id number] Admission Date: 01-30-2018 : 1940 Admission Diagnosis: Attending: JOSÉ, Current LOS: 4 Anticipated DC Date: 02-03-2018 Planned Disposition: Home with Home Health Primary Insurance: MEDICARE A & B PLANNED EXTERNAL PROVIDER: [facility] Discharge Planning Comments: CM MET WITH PT AND SPOUSE IN ROOM TO DISCUSS DISCHARGE PLANNING AND NEEDS. SEGUN ALEX provided verbal consent to discuss current and ongoing needs with/in the presence of: RACHAEL, SPOUSE. PT REPORTS LIVING AT HOME INDEPENDENTLY WITH SPOUSE. PT REPORTS NEEDING ALL NEEDED MEDICAL EQUIPMENT PROVIDED BY [facility]. PT HAS NO OUTSIDE SERVICES ASSISTING IN THE HOME. CM DISCUSSED AVAILABILITY OF HOME HEALTH, REHAB SERVICES AND MEDICAL EQUIPMENT. PT HAS HAD HOME HEALTH WITH [facility] IN THE PAST AND FEELS A BIT SHAKEY AND WOULD LIKE HOME HEALTH WITH [facility] AGAIN, REPORTS HIS WILL PICK [facility] UP FOR DISCHARGE HOME TODAY. IMPORTANT MESSAGE FROM MEDICARE PROVIDED AND EXPLAINED. TOWING PILOT NURSE NOTIFIED. CM CALLED [facility], , SPOKE TO CHRISTOPHER WHO TOOK REFERRAL AND PLACED PT ON SCHEDULE FOR HOME HEALTH ADMISSION TOMORROW. CM FAXED REFERRAL AND DISCHARGE INFORMATION TO [facility] AT [phone]. Body Design Checker: Kale Baumann DCPIA - Discharge Planning Initial Assessment Updated by [id number]: Kale Baumann on 02/03/18 1:56 pm * Is the patient Alert and Oriented? Yes * How many steps to enter\exit or inside your home? * PCP DR. RUBIO * Pharmacy [facility], [address] * Preadmission Environment Home with Family * ADLs Independent * Equipment BIPAP Cane Nebulizer Oxygen Shower Chair Walker * Other Equipment HOME AND PORTABLE OXYGEN [facility] - PROVIDER * List name and contact numbers for known caregivers / representatives who currently or will assist patient after discharge: RACHAEL ALEX, SPOUSE, * Verbal permission to speak to the caregivers and representatives has been obtained from the patient. Yes * Community resources currently utilized None * Please name any agencies selected above. NONE * Additional services required to return to the preadmission environment? No * Can the patient safely return to the preadmission environment? Yes * Has this patient been hospitalized within the prior 30 days at any hospital? No Coverage Notice Reviewer: [id number] Ramona Baumann Notice Issued Date-Time: 02/03/2018 10:20 Notice Type: Patient Choice Letter Notice Delivered To: Patient Relationship to Patient: Cover Stitch Machine Operator Name: Delivery Method: HAND - Hand Delivered Lizzeth Days: Prior Verbal Notification: Recipient Understood Notice: Yes Recipient Signature: Yes Med Rec Note Co-signed by Attending: Coverage Notice Comment: [facility] Reviewer: [id number] Ramona Baumann Notice Issued Date-Time: 02/03/2018 10:20 Notice Type: IM Discharge Notice Notice Delivered To: Patient Relationship to Patient: Cover Stitch Machine Operator Name: Delivery Method: HAND - Hand Delivered Lizzeth Days: Prior Verbal Notification: Recipient Understood Notice: Yes Recipient Signature: Yes Med Rec Note Co-signed by Attending: Coverage Notice Comment: Last DP export: 02/03/18 1:11 Patient Name: SEGUN ALEX Page 72255 at 0745 All edits/amendments must be made on the electronic document DICTATION DATE: 02/04/18744 OUTDOOR RECREATION SPECIALIST: ADEBAYO 02/04/18744 RPT#: [id number] DC DATE:02/03/18 STATUS: DIS IN [facility] [address] [place] [address] END OF REPORT
--- NOTE | ~2018-01-30 | MORECARE ---
CASE MANAGEMENT DISCHARGE SUMMARY PATIENT: SEGUN ALEX UNIT: [id number] ADM DATE: 01/30/18 AGE: 77 : 41 SEX: M ROOM/BED: D.2137 AUTHOR: ADRIAN MERCADO PHYSICIAN: REFERRING PHYSICIAN: BRITTNEE KUMAR MD DATE OF SERVICE: 02/03/18 Discharge Plan Patient Name: SEGUN ALEX [facility] [facility] 1940 Planned Disposition: Home with Home Health Anticipated Discharge Date: 02/03/18 Discharge Date: Expected LOS: 4 Initial Reviewer: [id number] Initial Review Date: 01/30/2018 Generated: 02/03/18 3:02 pm DCPIA - Discharge Planning Initial Assessment Updated by [id number]: Kale Baumann on 02/03/18 1:56 pm * Is the patient Alert and Oriented? Yes * How many steps to enter\exit or inside your home? * PCP DR. RUBIO * Pharmacy [facility], [address] * Preadmission Environment Home with Family * ADLs Independent * Equipment BIPAP Cane Nebulizer Oxygen Shower Chair Walker * Other Equipment HOME AND PORTABLE OXYGEN [facility] - PROVIDER * List name and contact numbers for known caregivers / representatives who currently or will assist patient after discharge: RACHAEL ALEX, SPOUSE, * Verbal permission to speak to the caregivers and representatives has been obtained from the patient. Yes * Community resources currently utilized None * Please name any agencies selected above. NONE * Additional services required to return to the preadmission environment? No * Can the patient safely return to the preadmission environment? Yes * Has this patient been hospitalized within the prior 30 days at any hospital? No Last DP export: 02/03/18 12:18 Patient Name: SEGUN ALEX Page 44160 at 1402 All edits/amendments must be made on the electronic document DICTATION DATE: 02/03/18 1402 EDITOR GREETING CARD: ADEBAYO 02/03/18 1402 RPT#: [id number] DC DATE: STATUS: ADM IN [facility] [address] [place] [address] END OF REPORT
--- NOTE | ~2018-01-30 | MORECARE ---
CASE MANAGEMENT DISCHARGE SUMMARY PATIENT: SEGUN ALEX UNIT: [id number] ADM DATE: 01/30/18 AGE: 77 : 41 SEX: M ROOM/BED: D.2228 AUTHOR: ROGELIO,DOC PHYSICIAN: REFERRING PHYSICIAN: BRITTNEE KUMAR MD DATE OF SERVICE: 02/03/18 Discharge Plan Patient Name: SEGUN ALEX Facility: [facility]:[place] : 1940 Planned Disposition: Home with Home Health Anticipated Discharge Date: 02/03/18 Discharge Date: Expected LOS: 4 Initial Reviewer: [id number] Initial Review Date: 01/30/2018 Generated: 02/03/18 3:10 pm Comments DCP- Discharge Planning Updated by [id number]: Kale Baumann on 02/03/18 1:[address] Patient Name: SEGUN ALEX Admission Status: ER Accout number: [id number] Admission Date: 01-30-2018 : 1940 Admission Diagnosis: Attending: JOSÉ, Current LOS: 4 Anticipated DC Date: 02-03-2018 Planned Disposition: Home with Home Health Primary Insurance: MEDICARE A & B PLANNED EXTERNAL PROVIDER: [facility] Discharge Planning Comments: CM MET WITH PT AND SPOUSE IN ROOM TO DISCUSS DISCHARGE PLANNING AND NEEDS. SEGUN ALEX provided verbal consent to discuss current and ongoing needs with/in the presence of: RACHAEL, SPOUSE. PT REPORTS LIVING AT HOME INDEPENDENTLY WITH SPOUSE. PT REPORTS NEEDING ALL NEEDED MEDICAL EQUIPMENT PROVIDED BY [facility] [place]. PT HAS NO OUTSIDE SERVICES ASSISTING IN THE HOME. CM DISCUSSED AVAILABILITY OF HOME HEALTH, REHAB SERVICES AND MEDICAL EQUIPMENT. PT HAS HAD HOME HEALTH WITH [facility] IN THE PAST AND FEELS A BIT SHAKEY AND WOULD LIKE HOME HEALTH WITH [facility] AGAIN, REPORTS HIS WILL PICK [facility] UP FOR DISCHARGE HOME TODAY. IMPORTANT MESSAGE FROM MEDICARE PROVIDED AND EXPLAINED. WALLPAPER INSPECTOR AND SHIPPER NURSE NOTIFIED. CM CALLED [facility], , SPOKE TO CHRISTOPHER WHO TOOK REFERRAL AND PLACED PT ON SCHEDULE FOR HOME HEALTH ADMISSION TOMORROW. CM FAXED REFERRAL AND DISCHARGE INFORMATION TO [facility] AT [phone]. Anesthesiology Faculty: Kale Baumann DCPIA - Discharge Planning Initial Assessment Updated by [id number]: Kale Baumann on 02/03/18 1:56 pm * Is the patient Alert and Oriented? Yes * How many steps to enter\exit or inside your home? * PCP DR. RUBIO * Pharmacy [facility], [address] * Preadmission Environment Home with Family * ADLs Independent * Equipment BIPAP Cane Nebulizer Oxygen Shower Chair Walker * Other Equipment HOME AND PORTABLE OXYGEN [facility] - PROVIDER * List name and contact numbers for known caregivers / representatives who currently or will assist patient after discharge: RACHAEL ALEX, SPOUSE, * Verbal permission to speak to the caregivers and representatives has been obtained from the patient. Yes * Community resources currently utilized None * Please name any agencies selected above. NONE * Additional services required to return to the preadmission environment? No * Can the patient safely return to the preadmission environment? Yes * Has this patient been hospitalized within the prior 30 days at any hospital? No Coverage Notice Reviewer: [id number] Ramona Baumann Notice Issued Date-Time: 02/03/2018 10:20 Notice Type: Patient Choice Letter Notice Delivered To: Patient Relationship to Patient: Die Cutter Apprentice Name: Delivery Method: HAND - Hand Delivered Lizzeth Days: Prior Verbal Notification: Recipient Understood Notice: Yes Recipient Signature: Yes Med Rec Note Co-signed by Attending: Coverage Notice Comment: [facility] Reviewer: [id number] Ramona Baumann Notice Issued Date-Time: 02/03/2018 10:20 Notice Type: IM Discharge Notice Notice Delivered To: Patient Relationship to Patient: Die Cutter Apprentice Name: Delivery Method: HAND - Hand Delivered Lizzeth Days: Prior Verbal Notification: Recipient Understood Notice: Yes Recipient Signature: Yes Med Rec Note Co-signed by Attending: Coverage Notice Comment: Last DP export: 02/03/18 1:02 Patient Name: SEGUN ALEX Page 61354 at 1411 All edits/amendments must be made on the electronic document DICTATION DATE: 02/03/181409 DIGITAL MEDIA MANAGER: ADEBAYO 02/03/181409 RPT#: [id number] DC DATE: STATUS: ADM IN [facility] [address] [place] [address] END OF REPORT
--- NOTE | ~2018-01-30 | MORECARE ---
CASE MANAGEMENT DISCHARGE SUMMARY PATIENT: SEGUN ALEX UNIT: [id number] ADM DATE: 01/30/18 AGE: 77 : 41 SEX: M ROOM/BED: D.TRIHEALTH AUTHOR: ADRIAN MERCADO PHYSICIAN: REFERRING PHYSICIAN: BRITTNEE KUMAR MD DATE OF SERVICE: 02/02/18 Discharge Plan Patient Name: SEGUN ALEX [facility] [facility] 1940 Planned Disposition: Anticipated Discharge Date: Discharge Date: Expected LOS: Initial Reviewer: [id number] Initial Review Date: 01/30/2018 Generated: 02/02/18 11:34 am Patient Name: SEGUN ALEX Page 60581 at 1034 All edits/amendments must be made on the electronic document DICTATION DATE: 02/02/18 1034 DOSIER OPERATOR: ADEBAYO 02/02/18 1034 RPT#: [id number] DC DATE: STATUS: ADM IN [facility] [address] [place] [address] END OF REPORT
--- NOTE | ~2018-01-30 | MORECARE ---
CASE MANAGEMENT DISCHARGE SUMMARY PATIENT: SEGUN ALEX UNIT: [id number] ADM DATE: 01/30/18 AGE: 77 : 41 SEX: M ROOM/BED: D.2137 AUTHOR: ADRIAN MERCADO PHYSICIAN: REFERRING PHYSICIAN: BRITTNEE KUMAR MD DATE OF SERVICE: 02/03/18 Discharge Plan Patient Name: SEGUN ALEX [facility] [facility] 1940 Planned Disposition: Home with Home Health Anticipated Discharge Date: 02/03/18 Discharge Date: Expected LOS: 4 Initial Reviewer: [email or web address] Initial Review Date: 01/30/2018 Generated: 02/03/18 2:18 pm External Providers External Provider: [facility] Next Contact Date: 02/03/2018 Service Request Date: Service Type: Resolution: Reviewer: Comments: Last DP export: 02/02/18 9:34 Patient Name: SEGUN ALEX Page [id number] at 1318 All edits/amendments must be made on the electronic document DICTATION DATE: 02/03/18 1317 OPERATIONS ASSOCIATE: ADEBAYO 02/03/18 1317 RPT#: [id number] DC DATE: STATUS: ADM IN [facility] [address] [place] [address] END OF REPORT
[2018-01-30] MEDS ORDERED: ASPIRIN81 MG PO (17:49)
[2018-01-30 17:50] LABS: BASOPHILS 0.3 % (0-2); EOSINOPHILS 0 % (0-7); HEMATOCRIT 20.2 % (42.0-54.0); IMMATURE GRANULOCYTES 0.2 % (0-5); LYMPHOCYTES 15.8 % (15-50); MCH 26.6 pg (26.0-34.0); MCHC 31.2 g/dL (31.0-37.0); MCV 85.2 fL (80.0-100.0); MEAN PLATELET VOLUME 8.6 fL (7.4-10.4); MONOCYTES 9.4 % (2-11); NEUTROPHILS 74.3 % (40-80); RBC 2.37 10x6/uL (4.20-6.10); RDW 17.6 % (11.5-14.5); WBC 6.2 10x3/uL (4.8-10.8)
[2018-01-30] MEDS ORDERED: CALCIUM 600 +1 EAC3 PO (17:50)
[2018-01-30] MEDS ORDERED: FERROUS SULFAT325 MG PO (17:51)
[2018-01-30] MEDS ORDERED: PRAVACHOL40 MG PO (17:52)
[2018-01-30] MEDS ORDERED: NORCO 7.5/325 T1 TA1 PO (17:52)
[2018-01-30] MEDS ORDERED: XELJANZ5 MG PO (17:53)
[2018-01-30 18:00] LABS: APTT 23.3 SECONDS (22.8-39.4)
[2018-01-30 18:01] LABS: INR 1.07 (0.85-1.17); PROTIME 13.5 SECONDS (11.6-15.0)
[2018-01-30 18:15] LABS: HEMOGLOBIN 6.3 g/dL (13.5-17.5); PLATELET COUNT 262 10x3/uL (130-400)
[2018-01-30 18:20] LABS: ALBUMIN 2.9 g/dL (3.4-5.0); ANION GAP 10.9 mmol/L (8-16); BILIRUBIN - TOTAL 0.27 mg/dL (0.2-1.3); CALCIUM 8.4 mg/dL (8.5-10.1); CARBON DIOXIDE 32.4 mmol/L (21.0-32.0); CREATININE - SERUM 1.3 mg/dL (0.6-1.3); POTASSIUM - SERUM 4.3 mmol/L (3.5-5.1); PROTEIN - SERUM 5.8 g/dL (6.4-8.2)
[2018-01-30 18:28] LABS: TROPONIN-I 0.018 ng/mL (0.000-0.060)
[2018-01-31] VITALS (24 sets, daily range): BP systolic 92–129; BP diastolic 38–65
[2018-01-31 02:13] LABS: HEMATOCRIT 26.6 % (42.0-54.0); HEMOGLOBIN 8.6 g/dL (13.5-17.5)
[2018-01-31 05:52] LABS: BASOPHILS 0.2 % (0-2); EOSINOPHILS 0 % (0-7); HEMATOCRIT 23.8 % (42.0-54.0); HEMOGLOBIN 7.7 g/dL (13.5-17.5); IMMATURE GRANULOCYTES 0.2 % (0-5); LYMPHOCYTES 22.1 % (15-50); MCH 26.9 pg (26.0-34.0); MCHC 32.4 g/dL (31.0-37.0); MEAN PLATELET VOLUME 8.9 fL (7.4-10.4); MONOCYTES 15.5 % (2-11); PLATELET COUNT 211 10x3/uL (130-400); RDW 17.7 % (11.5-14.5); WBC 5.2 10x3/uL (4.8-10.8)
[2018-01-31 06:01] LABS: MCV 83.2 fL (80.0-100.0); RBC 2.86 10x6/uL (4.20-6.10)
[2018-01-31 19:35] LABS: HEMATOCRIT 29.8 % (42.0-54.0); HEMOGLOBIN 9.6 g/dL (13.5-17.5)
[2018-02-01] VITALS (23 sets, daily range): BP systolic 85–145; BP diastolic 45–78; Ht 172.7 cm; Wt 95.9 kg
[2018-02-01 03:09] LABS: BASOPHILS 0.2 % (0-2); EOSINOPHILS 0 % (0-7); HEMATOCRIT 31.8 % (42.0-54.0); HEMOGLOBIN 10.2 g/dL (13.5-17.5); IMMATURE GRANULOCYTES 0.2 % (0-5); LYMPHOCYTES 19.8 % (15-50); MCH 27.1 pg (26.0-34.0); MCHC 32.1 g/dL (31.0-37.0); MCV 84.6 fL (80.0-100.0); MEAN PLATELET VOLUME 8.5 fL (7.4-10.4); MONOCYTES 14.6 % (2-11); NEUTROPHILS 65.2 % (40-80); PLATELET COUNT 204 10x3/uL (130-400); RDW 16.9 % (11.5-14.5); WBC 5.3 10x3/uL (4.8-10.8)
[2018-02-01 03:11] LABS: RBC 3.76 10x6/uL (4.20-6.10)
[2018-02-01 03:18] LABS: INR 1.04 (0.85-1.17); PROTIME 13.2 SECONDS (11.6-15.0)
[2018-02-01 03:23] LABS: ALBUMIN 2.9 g/dL (3.4-5.0); ALKALINE PHOSPHATASE 54 U/L (46-116); ALT (SGPT) 21 U/L (10-68); BILIRUBIN - TOTAL 0.46 mg/dL (0.2-1.3); CALC OSMOLALITY 287 mosm/kg (275-300); CALCIUM 8.2 mg/dL (8.5-10.1); CARBON DIOXIDE 36.9 mmol/L (21.0-32.0); CHLORIDE - SERUM 106 mmol/L (98-107); GLUCOSE 90 mg/dL (74-106); POTASSIUM - SERUM 3.8 mmol/L (3.5-5.1); PROTEIN - SERUM 5.9 g/dL (6.4-8.2); SODIUM 144 mmol/L (136-145); UREA NITROGEN 16 mg/dL (7-18); eGFR NON AFRICAN AMERICAN 77 mL/min (90-120)
[2018-02-01 10:54] LABS: HEMATOCRIT 30.6 % (42.0-54.0); HEMOGLOBIN 9.8 g/dL (13.5-17.5)
[2018-02-01 18:48] LABS: HEMATOCRIT 28.5 % (42.0-54.0); HEMOGLOBIN 9.2 g/dL (13.5-17.5)
[2018-02-02] VITALS (15 sets, daily range): BP systolic 93–138; BP diastolic 43–78
[2018-02-02 03:16] LABS: BASOPHILS 0.2 % (0-2); EOSINOPHILS 0 % (0-7); HEMATOCRIT 28.8 % (42.0-54.0); LYMPHOCYTES 20.8 % (15-50); MCHC 31.3 g/dL (31.0-37.0); MCV 86.5 fL (80.0-100.0); MEAN PLATELET VOLUME 8.9 fL (7.4-10.4); PLATELET COUNT 206 10x3/uL (130-400); RBC 3.33 10x6/uL (4.20-6.10); RDW 16.6 % (11.5-14.5)
[2018-02-02 03:25] LABS: ALBUMIN 2.6 g/dL (3.4-5.0); ALKALINE PHOSPHATASE 51 U/L (46-116); ALT (SGPT) 20 U/L (10-68); BILIRUBIN - TOTAL 0.33 mg/dL (0.2-1.3); CALC OSMOLALITY 289 mosm/kg (275-300); CALCIUM 7.9 mg/dL (8.5-10.1); CARBON DIOXIDE 35.8 mmol/L (21.0-32.0); CHLORIDE - SERUM 104 mmol/L (98-107); CREATININE - SERUM 0.9 mg/dL (0.6-1.3); GLUCOSE 88 mg/dL (74-106); POTASSIUM - SERUM 3.9 mmol/L (3.5-5.1); PROTEIN - SERUM 4.9 g/dL (6.4-8.2); SODIUM 145 mmol/L (136-145); UREA NITROGEN 17 mg/dL (7-18); eGFR NON AFRICAN AMERICAN 87 mL/min (90-120)
[2018-02-02 10:00] LABS: HEMATOCRIT 29.9 % (42.0-54.0); HEMOGLOBIN 9.4 g/dL (13.5-17.5)
[2018-02-02 19:01] LABS: HEMATOCRIT 28.8 % (42.0-54.0); HEMOGLOBIN 9.1 g/dL (13.5-17.5)
[2018-02-03 01:10] VITALS: BP 116/36
[2018-02-03 04:34] LABS: HEMATOCRIT 27.9 % (42.0-54.0); HEMOGLOBIN 8.5 g/dL (13.5-17.5)
[2018-02-03 06:06] VITALS: BP 111/43
[2018-02-03 08:24] VITALS: BP 100/52
[2018-02-03 11:27] VITALS: BP 109/62
[2018-02-03 14:06] LABS: HEMATOCRIT 28.7 % (42.0-54.0)
== END 2018-02-03 15:56 | disposition home health service (06) | DRG 378 ==
LOC: D.ER 17:17 → D.M2 17:58 → D.EDHOLD 17:58 → D.CVICU 17:58 → D.ICU 18:22 → D.CVICU 23:29 → D.M2 02-02 18:48
PROVIDERS: Family Medicine; Internal Medicine Gastroenterology
PROC: 0W3P8ZZ Control Bleeding in Gastrointestinal Tract, Via Natural or Artificial Opening Endoscopic (ICD-10-PCS; principal; 2018-02-01 14:00)
DX: K29.01 Acute gastritis with bleeding (principal); N17.9 Acute kidney failure, unspecified; D62 Acute posthemorrhagic anemia; J96.11 Chronic respiratory failure with hypoxia; K31.7 Polyp of stomach and duodenum; J43.9 Emphysema, unspecified; I11.0 Hypertensive heart disease with heart failure; I50.9 Heart failure, unspecified; I25.10 Atherosclerotic heart disease of native coronary artery without angina pectoris; I48.91 Unspecified atrial fibrillation; F41.9 Anxiety disorder, unspecified; F32.9 Major depressive disorder, single episode, unspecified; K21.9 Gastro-esophageal reflux disease without esophagitis

== ENCOUNTER 2018-02-11 12:55 | Inpatient (IN) | payer MEDICARE, OTHER ==
[~2018-02-11] VITALS: Ht 172.7 cm; Wt 94.3 kg
[2018-02-11] VITALS (8 sets, daily range): BP systolic 104–127; BP diastolic 45–72; BMI 32.7
--- NOTE | ~2018-02-11 | MORECARE ---
CASE MANAGEMENT DISCHARGE SUMMARY PATIENT: SEGUN KANG UNIT: [id number] ADM DATE: 02/11/18 AGE: 77 : 41 SEX: M ROOM/BED: D.2239 AUTHOR: ADRIAN MERCADO PHYSICIAN: REFERRING PHYSICIAN: [place] LO MD DATE OF SERVICE: 02/22/18 Discharge Plan Patient Name: SEGUN KANG Facility: [facility]:[place] : 1940 Planned Disposition: Home Anticipated Discharge Date: 02/13/18 Discharge Date: Expected LOS: 2 Initial Reviewer: [id number] Initial Review Date: 02/11/2018 Generated: 02/22/18 3:16 pm Comments DCP- Discharge Planning Updated by [id number]: Chelsea Silveira on 02/22/18 1:[address] Patient Name: SEGUN KANG Encounter No: [id number] : 1940 Primary Insurance: MEDICARE A & B Anticipated DC Date: 02-13-2018 Planned Disposition: Home External Planned Provider: : DCP follow-up note: Patient family in agreement with discharge plan. States his ride is outside waiting for him to come out. I notified [facility] of discharge and paper work given to Radha. He denies further needs at this time. No changes to plan. Case management will follow and assist as needed. Chelsea Silveira DCP- Discharge Planning Updated by [id number]: Breanneeleanor Chan on 02/11/18 2:[address] Patient Name: SEGUN KANG Admission Status: ER Accout number: [id number] Admission Date: 02-11-2018 : 1940 Admission Diagnosis: Attending: STANLEY LO Current LOS: 1 Anticipated DC Date: 02-13-2018 Planned Disposition: Home Primary Insurance: MEDICARE A & B Discharge Planning Comments: CM met with patient and his , Marina, to complete initial dc planning assessment. CM educated patient on the CM role and verbal consent given by patient to complete assessment. Patient lives at home with his and reports he is independent in his care. Patient was discharged last week with [facility]. At discharge patient plans to return home with his and resumption of [facility] and he feels this is a safe discharge. Patient denied known discharge needs at this time. CM will continue to follow and will assist as needed with dc plans/needs. See below for more assessment information. Register Of Deeds: Breanne Chan DCPIA - Discharge Planning Initial Assessment Updated by [id number]: Breanne Chan on 02/11/18 2:31 pm * Is the patient Alert and Oriented? Yes * How many steps to enter\exit or inside your home? Three * PCP Dr. Lo * Pharmacy [facility] [address] * Preadmission Environment Home with Family * ADLs Independent * Equipment Cane Crutch Oxygen Rolling Walker Walker * Other Equipment Wears O2 24/ at home. Low is provider. * List name and contact numbers for known caregivers / representatives who currently or will assist patient after discharge: Marina Kang - - [phone] * Verbal permission to speak to the caregivers and representatives has been obtained from the patient. Yes * Community resources currently utilized Home Health * Please name any agencies selected above. [facility] * Additional services required to return to the preadmission environment? No * Can the patient safely return to the preadmission environment? Yes * Has this patient been hospitalized within the prior 30 days at any hospital? Yes Coverage Notice Reviewer: [id number] Ramona Silveira Notice Issued Date-Time: 02/22/2018 14:07 Notice Type: IM Discharge Notice Notice Delivered To: Patient Relationship to Patient: Self Financial Reporting Analyst Name: Delivery Method: HAND - Hand Delivered Lizzeth Days: Prior Verbal Notification: Recipient Understood Notice: Yes Recipient Signature: Yes Med Rec Note Co-signed by Attending: Coverage Notice Comment: IMM explained, signed, copy given, original placed in MR Last DP export: 02/11/18 2:33 p Patient Name: SEGUN KANG Page 09192 at 1416 All edits/amendments must be made on the electronic document DICTATION DATE: 02/22/181415 TOP LOADER: ADEBAYO 02/22/181415 RPT#: [id number] DC DATE: STATUS: ADM IN [facility] [address] [place] [address] END OF REPORT
--- NOTE | ~2018-02-11 | MORECARE ---
CASE MANAGEMENT DISCHARGE SUMMARY PATIENT: SEGUN KANG UNIT: [id number] ADM DATE: 02/11/18 AGE: 77 : 41 SEX: M ROOM/BED: D.2239 AUTHOR: ADRIAN MERCADO PHYSICIAN: REFERRING PHYSICIAN: STANLEY LO MD DATE OF SERVICE: 02/23/18 Discharge Plan Patient Name: SEGUN KANG Facility: [facility]:[place] : 1940 Planned Disposition: Home Anticipated Discharge Date: 02/13/18 Discharge Date: 02/22/2018 Expected LOS: 2 Initial Reviewer: [id number] Initial Review Date: 02/11/2018 Generated: 02/23/18 10:26 am Comments DCP- Discharge Planning Updated by [id number]: Chelsea Silveira on 02/22/18 1:[address] Patient Name: SEGUN AKNG Encounter No: [id number] : 1940 Primary Insurance: MEDICARE A & B Anticipated DC Date: 02-13-2018 Planned Disposition: Home External Planned Provider: : DCP follow-up note: Patient family in agreement with discharge plan. States his ride is outside waiting for him to come out. I notified [facility] of discharge and paper work given to Radha. He denies further needs at this time. No changes to plan. Case management will follow and assist as needed. Chelsea Silveira DCP- Discharge Planning Updated by [id number]: Breanne Chan on 02/11/18 2:[address] Patient Name: SEGUN KANG Admission Status: ER Accout number: [id number] Admission Date: 02-11-2018 : 1940 Admission Diagnosis: Attending: STANLEY LO Current LOS: 1 Anticipated DC Date: 02-13-2018 Planned Disposition: Home Primary Insurance: MEDICARE A & B Discharge Planning Comments: CM met with patient and his , Marina, to complete initial dc planning assessment. CM educated patient on the CM role and verbal consent given by patient to complete assessment. Patient lives at home with his and reports he is independent in his care. Patient was discharged last week with [facility]. At discharge patient plans to return home with his and resumption of [facility] and he feels this is a safe discharge. Patient denied known discharge needs at this time. CM will continue to follow and will assist as needed with dc plans/needs. See below for more assessment information. Record Press Operator: Breanne Dustin DCPIA - Discharge Planning Initial Assessment Updated by [id number]: Breanne Dustin on 02/11/18 2:31 pm * Is the patient Alert and Oriented? Yes * How many steps to enter\exit or inside your home? Three * PCP Dr. Lo * Pharmacy [facility] [address] * Preadmission Environment Home with Family * ADLs Independent * Equipment Cane Crutch Oxygen Rolling Walker Walker * Other Equipment Wears O2 24/ at home. Low is provider. * List name and contact numbers for known caregivers / representatives who currently or will assist patient after discharge: Marina Kang - - [phone] * Verbal permission to speak to the caregivers and representatives has been obtained from the patient. Yes * Community resources currently utilized Home Health * Please name any agencies selected above. [facility] * Additional services required to return to the preadmission environment? No * Can the patient safely return to the preadmission environment? Yes * Has this patient been hospitalized within the prior 30 days at any hospital? Yes Coverage Notice Reviewer: [id number] - Chelsea Silveira Notice Issued Date-Time: 02/22/2018 14:07 Notice Type: IM Discharge Notice Notice Delivered To: Patient Relationship to Patient: Self Admission Specialist Name: Delivery Method: HAND - Hand Delivered Lizzeth Days: Prior Verbal Notification: Recipient Understood Notice: Yes Recipient Signature: Yes Med Rec Note Co-signed by Attending: Coverage Notice Comment: IMM explained, signed, copy given, original placed in MR Last DP export: 02/22/18 1:16 Patient Name: SEGUN KANG Page 95205 at 0926 All edits/amendments must be made on the electronic document DICTATION DATE: 02/23/18925 CREATIVE GURU: ADEBAYO 02/23/18925 RPT#: [id number] DC DATE:02/22/18 STATUS: DIS IN [facility] [address] [place] [address] END OF REPORT
--- NOTE | ~2018-02-11 | MORECARE ---
CASE MANAGEMENT DISCHARGE SUMMARY PATIENT: SEGUN KANG UNIT: [id number] ADM DATE: 02/11/18 AGE: 77 : 41 SEX: M ROOM/BED: D.2314 AUTHOR: ROGELIO,DOC PHYSICIAN: REFERRING PHYSICIAN: [place] LO MD DATE OF SERVICE: 02/11/18 Discharge Plan Patient Name: SEGUN KANG Facility: [facility]:[place] : 1940 Planned Disposition: Home Anticipated Discharge Date: 02/13/18 Discharge Date: Expected LOS: 2 Initial Reviewer: [email or web address] Initial Review Date: 02/11/2018 Generated: 02/11/18 3:33 pm DCP- Discharge Planning Updated by [id number]: Breanne Chan on 02/11/18 1:[address] Patient Name: SEGUN KANG Admission Status: ER Accout number: [id number] Admission Date: 02-11-2018 : 1940 Admission Diagnosis: Attending: STANLEY LO Current LOS: 1 Anticipated DC Date: 02-13-2018 Planned Disposition: Home Primary Insurance: MEDICARE A & B Discharge Planning Comments: CM met with patient and his , Marina, to complete initial dc planning assessment. CM educated patient on the CM role and verbal consent given by patient to complete assessment. Patient lives at home with his and reports he is independent in his care. Patient was discharged last week with [facility]. At discharge patient plans to return home with his and resumption of [facility] and he feels this is a safe discharge. Patient denied known discharge needs at this time. CM will continue to follow and will assist as needed with dc plans/needs. See below for more assessment information. Administration Manager: Breanne Chan DCPIA - Discharge Planning Initial Assessment Updated by [id number]: Breanne Chan on 02/11/18 2:31 pm * Is the patient Alert and Oriented? Yes * How many steps to enter\exit or inside your home? Three * PCP Dr. Lo * Pharmacy [facility] [address] * Preadmission Environment Home with Family * ADLs Independent * Equipment Cane Crutch Oxygen Rolling Walker Walker * Other Equipment Wears O2 24/7 at home. Low is provider. * List name and contact numbers for known caregivers / representatives who currently or will assist patient after discharge: Marina Kang - - [phone] * Verbal permission to speak to the caregivers and representatives has been obtained from the patient. Yes * Community resources currently utilized Home Health * Please name any agencies selected above. [facility] * Additional services required to return to the preadmission environment? No * Can the patient safely return to the preadmission environment? Yes * Has this patient been hospitalized within the prior 30 days at any hospital? Yes Patient Name: SEGUN KANG Page 04346 at 1433 All edits/amendments must be made on the electronic document DICTATION DATE: 02/11/181432 SHREDDER TENDER: ADEBAYO 02/11/181432 RPT#: [id number] DC DATE: STATUS: ADM IN [facility] [address] [place] [address] END OF REPORT
[~2018-02-11 12:55] MED LIST changes: +ASPIRIN81 MG PO; +CALCIUM 600 +1 EAC3 PO; +FERROUS SULFAT325 MG PO; +NORCO 7.5/325 T1 TA1 PO; +PLAQUENIL 200200 MG; +XELJANZ5 MG PO
[2018-02-11 13:38] LABS: BASOPHILS 0.4 % (0-2); EOSINOPHILS 0 % (0-7); IMMATURE GRANULOCYTES 0.2 % (0-5); LYMPHOCYTES 16.9 % (15-50); MCH 27.5 pg (26.0-34.0); MCHC 30.6 g/dL (31.0-37.0); MCV 89.9 fL (80.0-100.0); NEUTROPHILS 70.5 % (40-80); PLATELET COUNT 195 10x3/uL (130-400); RDW 17.3 % (11.5-14.5); WBC 5.4 10x3/uL (4.8-10.8)
[2018-02-11 13:51] LABS: ALBUMIN 2.5 g/dL (3.4-5.0); ANION GAP 5.3 mmol/L (8-16); BILIRUBIN - TOTAL 0.24 mg/dL (0.2-1.3); CALCIUM 7.9 mg/dL (8.5-10.1); CARBON DIOXIDE 37.4 mmol/L (21.0-32.0); CREATININE - SERUM 1.3 mg/dL (0.6-1.3); HEMOGLOBIN 5.2 g/dL (13.5-17.5); INR 1.03 (0.85-1.17); POTASSIUM - SERUM 3.7 mmol/L (3.5-5.1); PROTEIN - SERUM 5.1 g/dL (6.4-8.2); PROTIME 13.1 SECONDS (11.6-15.0); RBC 1.89 10x6/uL (4.20-6.10)
[2018-02-12] VITALS (22 sets, daily range): BP systolic 87–182; BP diastolic 40–98; Ht 172.7 cm; Wt 94.3 kg
[2018-02-12 02:40] LABS: BASOPHILS 0.2 % (0-2); EOSINOPHILS 0 % (0-7); IMMATURE GRANULOCYTES 0.2 % (0-5); LYMPHOCYTES 18.7 % (15-50); MCH 27.8 pg (26.0-34.0); MCHC 31.1 g/dL (31.0-37.0); MCV 89.5 fL (80.0-100.0); MEAN PLATELET VOLUME 9.2 fL (7.4-10.4); MONOCYTES 16.9 % (2-11); PLATELET COUNT 189 10x3/uL (130-400); RDW 16.8 % (11.5-14.5); WBC 5.9 10x3/uL (4.8-10.8)
[2018-02-12 02:43] LABS: RBC 2.48 10x6/uL (4.20-6.10)
[2018-02-12 02:44] LABS: HEMATOCRIT 22.2 % (42.0-54.0); HEMOGLOBIN 6.9 g/dL (13.5-17.5)
[2018-02-12 02:54] LABS: ALBUMIN 2.4 g/dL (3.4-5.0); ALKALINE PHOSPHATASE 40 U/L (46-116); ALT (SGPT) 14 U/L (10-68); BILIRUBIN - TOTAL 0.37 mg/dL (0.2-1.3); CALC OSMOLALITY 291 mosm/kg (275-300); CALCIUM 7.9 mg/dL (8.5-10.1); CARBON DIOXIDE 37.2 mmol/L (21.0-32.0); CHLORIDE - SERUM 108 mmol/L (98-107); GLUCOSE 94 mg/dL (74-106); POTASSIUM - SERUM 3.7 mmol/L (3.5-5.1); PROTEIN - SERUM 4.9 g/dL (6.4-8.2); SODIUM 145 mmol/L (136-145); UREA NITROGEN 22 mg/dL (7-18); eGFR NON AFRICAN AMERICAN 77 mL/min (90-120)
[2018-02-12 12:21] LABS: HEMATOCRIT 29.2 % (42.0-54.0); HEMOGLOBIN 9.3 g/dL (13.5-17.5)
[2018-02-13] VITALS (16 sets, daily range): BP systolic 90–126; BP diastolic 28–90
[2018-02-13 04:15] LABS: ALBUMIN 2.3 g/dL (3.4-5.0); ALKALINE PHOSPHATASE 38 U/L (46-116); ALT (SGPT) 14 U/L (10-68); AMYLASE - SERUM 37 U/L (25-115); BILIRUBIN - TOTAL 0.38 mg/dL (0.2-1.3); CALC OSMOLALITY 290 mosm/kg (275-300); CALCIUM 7.7 mg/dL (8.5-10.1); CARBON DIOXIDE 34.5 mmol/L (21.0-32.0); CHLORIDE - SERUM 109 mmol/L (98-107); CREATININE - SERUM 0.9 mg/dL (0.6-1.3); GLUCOSE 86 mg/dL (74-106); LIPASE 123 U/L (73-393); PHOSPHOROUS 3.3 mg/dL (2.5-4.9); POTASSIUM - SERUM 3.8 mmol/L (3.5-5.1); PRO BNP 267 pg/mL (0-450); PROTEIN - SERUM 4.7 g/dL (6.4-8.2); SODIUM 145 mmol/L (136-145); UREA NITROGEN 20 mg/dL (7-18); eGFR NON AFRICAN AMERICAN 87 mL/min (90-120)
[2018-02-14 00:20] VITALS: BP 138/64
[2018-02-14 06:37] LABS: BASOPHILS 0.2 % (0-2); EOSINOPHILS 0 % (0-7); HEMATOCRIT 24.3 % (42.0-54.0); HEMOGLOBIN 7.6 g/dL (13.5-17.5); IMMATURE GRANULOCYTES 0.2 % (0-5); LYMPHOCYTES 20.4 % (15-50); MCH 28.1 pg (26.0-34.0); MCHC 31.3 g/dL (31.0-37.0); MONOCYTES 17.7 % (2-11); NEUTROPHILS 61.5 % (40-80); PLATELET COUNT 195 10x3/uL (130-400); RDW 15.9 % (11.5-14.5); WBC 4.8 10x3/uL (4.8-10.8)
[2018-02-14 07:04] LABS: CALC OSMOLALITY 290 mosm/kg (275-300); CALCIUM 7.7 mg/dL (8.5-10.1); CARBON DIOXIDE 35.8 mmol/L (21.0-32.0); CHLORIDE - SERUM 107 mmol/L (98-107); CREATININE - SERUM 0.9 mg/dL (0.6-1.3); GLUCOSE 101 mg/dL (74-106); POTASSIUM - SERUM 3.6 mmol/L (3.5-5.1); SODIUM 145 mmol/L (136-145); UREA NITROGEN 17 mg/dL (7-18); eGFR NON AFRICAN AMERICAN 87 mL/min (90-120)
[2018-02-14 09:04] VITALS: BP 137/58
[2018-02-14 11:52] VITALS: BP 125/56
[2018-02-14 20:50] VITALS: BP 134/66
[2018-02-15 05:28] VITALS: BP 105/42
[2018-02-15 07:44] LABS: BASOPHILS 0.2 % (0-2); EOSINOPHILS 0 % (0-7); HEMATOCRIT 28.7 % (42.0-54.0); IMMATURE GRANULOCYTES 0.2 % (0-5); LYMPHOCYTES 19.5 % (15-50); MCHC 31.4 g/dL (31.0-37.0); MCV 89.1 fL (80.0-100.0); MEAN PLATELET VOLUME 8.8 fL (7.4-10.4); MONOCYTES 15.5 % (2-11); NEUTROPHILS 64.6 % (40-80); PLATELET COUNT 185 10x3/uL (130-400); RBC 3.22 10x6/uL (4.20-6.10); RDW 15.9 % (11.5-14.5); WBC 5.2 10x3/uL (4.8-10.8)
[2018-02-15 08:04] LABS: ALBUMIN 2.4 g/dL (3.4-5.0); ALKALINE PHOSPHATASE 47 U/L (46-116); ALT (SGPT) 16 U/L (10-68); BILIRUBIN - TOTAL 0.36 mg/dL (0.2-1.3); CALC OSMOLALITY 291 mosm/kg (275-300); CARBON DIOXIDE 37.1 mmol/L (21.0-32.0); CHLORIDE - SERUM 108 mmol/L (98-107); CREATININE - SERUM 0.8 mg/dL (0.6-1.3); GLUCOSE 92 mg/dL (74-106); POTASSIUM - SERUM 3.7 mmol/L (3.5-5.1); PROTEIN - SERUM 5.2 g/dL (6.4-8.2); SODIUM 147 mmol/L (136-145); eGFR NON AFRICAN AMERICAN > 90 mL/min (90-120)
[2018-02-15 08:10] LABS: UREA NITROGEN 12 mg/dL (7-18)
[2018-02-15 08:37] VITALS: BP 114/42
[2018-02-15 13:07] VITALS: BP 125/56
[2018-02-15 20:00] VITALS: BP 96/41
[2018-02-16 05:00] VITALS: BP 91/48
[2018-02-16 06:24] LABS: BASOPHILS 0.1 % (0-2); EOSINOPHILS 0 % (0-7); HEMATOCRIT 23.5 % (42.0-54.0); HEMOGLOBIN 7.6 g/dL (13.5-17.5); IMMATURE GRANULOCYTES 0.2 % (0-5); LYMPHOCYTES 9.7 % (15-50); MCHC 32.3 g/dL (31.0-37.0); MCV 89.7 fL (80.0-100.0); MEAN PLATELET VOLUME 9.3 fL (7.4-10.4); MONOCYTES 11.6 % (2-11); NEUTROPHILS 78.4 % (40-80); PLATELET COUNT 184 10x3/uL (130-400); RBC 2.62 10x6/uL (4.20-6.10); RDW 15.7 % (11.5-14.5)
[2018-02-16 06:25] LABS: WBC 8.8 10x3/uL (4.8-10.8)
[2018-02-16 07:08] LABS: ALBUMIN 2.1 g/dL (3.4-5.0); ALKALINE PHOSPHATASE 43 U/L (46-116); ALT (SGPT) 15 U/L (10-68); BILIRUBIN - TOTAL 0.34 mg/dL (0.2-1.3); CALC OSMOLALITY 286 mosm/kg (275-300); CALCIUM 7.5 mg/dL (8.5-10.1); CARBON DIOXIDE 35.2 mmol/L (21.0-32.0); CHLORIDE - SERUM 107 mmol/L (98-107); CREATININE - SERUM 0.9 mg/dL (0.6-1.3); GLUCOSE 91 mg/dL (74-106); POTASSIUM - SERUM 3.7 mmol/L (3.5-5.1); PROTEIN - SERUM 4.3 g/dL (6.4-8.2); SODIUM 144 mmol/L (136-145); UREA NITROGEN 13 mg/dL (7-18); eGFR NON AFRICAN AMERICAN 87 mL/min (90-120)
[2018-02-16 08:51] VITALS: BP 109/49
[2018-02-16 14:50] VITALS: BP 126/66
[2018-02-16 19:10] VITALS: BP 136/77
[2018-02-17 04:40] VITALS: BP 118/64
[2018-02-17 07:07] LABS: BASOPHILS 0.2 % (0-2); EOSINOPHILS 0 % (0-7); HEMOGLOBIN 9.1 g/dL (13.5-17.5); LYMPHOCYTES 16.9 % (15-50); MCH 28.3 pg (26.0-34.0); MCHC 31.6 g/dL (31.0-37.0); MCV 89.7 fL (80.0-100.0); MONOCYTES 13.7 % (2-11); NEUTROPHILS 69.2 % (40-80); PLATELET COUNT 178 10x3/uL (130-400); RDW 15.3 % (11.5-14.5)
[2018-02-17 07:20] LABS: HEMATOCRIT 28.8 % (42.0-54.0); RBC 3.21 10x6/uL (4.20-6.10); WBC 5.9 10x3/uL (4.8-10.8)
[2018-02-17 07:24] LABS: ALBUMIN 2.2 g/dL (3.4-5.0); ALKALINE PHOSPHATASE 47 U/L (46-116); ALT (SGPT) 14 U/L (10-68); BILIRUBIN - TOTAL 0.32 mg/dL (0.2-1.3); CALC OSMOLALITY 287 mosm/kg (275-300); CALCIUM 7.7 mg/dL (8.5-10.1); CARBON DIOXIDE 38.6 mmol/L (21.0-32.0); CHLORIDE - SERUM 106 mmol/L (98-107); CREATININE - SERUM 0.8 mg/dL (0.6-1.3); GLUCOSE 99 mg/dL (74-106); POTASSIUM - SERUM 3.4 mmol/L (3.5-5.1); SODIUM 145 mmol/L (136-145); UREA NITROGEN 11 mg/dL (7-18); eGFR NON AFRICAN AMERICAN > 90 mL/min (90-120)
[2018-02-17 09:57] VITALS: BP 121/60
[2018-02-17 12:48] VITALS: BP 114/51
[2018-02-17 12:51] LABS: % SATURATION 4 % (15-55); IRON 11 ug/dl (35-150); TOTAL IRON BIND CAPACITY 246 ug/dl (260-445); UNSAT IRON BIND CAPACITY 235 ug/dl (150-375)
[2018-02-17 14:24] LABS: INR 1.06 (0.85-1.17); PROTIME 13.4 SECONDS (11.6-15.0)
[2018-02-17 17:08] VITALS: BP 121/71
[2018-02-17 17:45] LABS: HEMOGLOBIN 8.9 g/dL (13.5-17.5)
[2018-02-17 20:00] VITALS: BP 136/71
[2018-02-18 05:00] VITALS: BP 101/47
[2018-02-18 06:07] LABS: BASOPHILS 0.2 % (0-2); EOSINOPHILS 0 % (0-7); HEMATOCRIT 26.7 % (42.0-54.0); HEMOGLOBIN 8.2 g/dL (13.5-17.5); LYMPHOCYTES 22.3 % (15-50); MCH 28.3 pg (26.0-34.0); MCHC 30.7 g/dL (31.0-37.0); MEAN PLATELET VOLUME 9.2 fL (7.4-10.4); MONOCYTES 15.7 % (2-11); NEUTROPHILS 61.8 % (40-80); PLATELET COUNT 186 10x3/uL (130-400)
[2018-02-18 06:17] LABS: MCV 92.1 fL (80.0-100.0); WBC 4.1 10x3/uL (4.8-10.8)
[2018-02-18 06:25] LABS: ALBUMIN 2.1 g/dL (3.4-5.0); ALKALINE PHOSPHATASE 37 U/L (46-116); ALT (SGPT) 15 U/L (10-68); BILIRUBIN - TOTAL 0.29 mg/dL (0.2-1.3); CALC OSMOLALITY 291 mosm/kg (275-300); CALCIUM 7.8 mg/dL (8.5-10.1); CHLORIDE - SERUM 105 mmol/L (98-107); CREATININE - SERUM 0.8 mg/dL (0.6-1.3); GLUCOSE 96 mg/dL (74-106); POTASSIUM - SERUM 3.5 mmol/L (3.5-5.1); PROTEIN - SERUM 4.8 g/dL (6.4-8.2); SODIUM 147 mmol/L (136-145); UREA NITROGEN 13 mg/dL (7-18); eGFR NON AFRICAN AMERICAN > 90 mL/min (90-120)
[2018-02-18 06:31] LABS: CARBON DIOXIDE 43.2 mmol/L (21.0-32.0)
[2018-02-18 08:19] LABS: FOLATE (FOLIC ACID) - SERUM 16.8 ng/mL (>3.0)
[2018-02-18 08:35] VITALS: BP 105/57
[2018-02-18 13:48] VITALS: BP 109/62
[2018-02-18 17:53] VITALS: BP 165/54
[2018-02-18 20:00] VITALS: BP 131/73
[2018-02-19 04:00] VITALS: BP 138/76
[2018-02-19 05:47] LABS: BASOPHILS 0.2 % (0-2); EOSINOPHILS 0 % (0-7); HEMATOCRIT 26.7 % (42.0-54.0); HEMOGLOBIN 8.2 g/dL (13.5-17.5); IMMATURE GRANULOCYTES 0.2 % (0-5); LYMPHOCYTES 19.4 % (15-50); MCH 27.6 pg (26.0-34.0); MCHC 30.7 g/dL (31.0-37.0); MEAN PLATELET VOLUME 9.2 fL (7.4-10.4); MONOCYTES 15.6 % (2-11); NEUTROPHILS 64.6 % (40-80); PLATELET COUNT 215 10x3/uL (130-400); RBC 2.97 10x6/uL (4.20-6.10); RDW 15.3 % (11.5-14.5)
[2018-02-19 06:08] LABS: ALBUMIN 2.1 g/dL (3.4-5.0); ALKALINE PHOSPHATASE 39 U/L (46-116); ALT (SGPT) 14 U/L (10-68); BILIRUBIN - TOTAL 0.35 mg/dL (0.2-1.3); CALC OSMOLALITY 288 mosm/kg (275-300); CALCIUM 7.6 mg/dL (8.5-10.1); CHLORIDE - SERUM 102 mmol/L (98-107); CREATININE - SERUM 0.8 mg/dL (0.6-1.3); GLUCOSE 101 mg/dL (74-106); MCV 89.9 fL (80.0-100.0); POTASSIUM - SERUM 3.4 mmol/L (3.5-5.1); PROTEIN - SERUM 4.8 g/dL (6.4-8.2); SODIUM 145 mmol/L (136-145); UREA NITROGEN 13 mg/dL (7-18); eGFR NON AFRICAN AMERICAN > 90 mL/min (90-120)
[2018-02-19 06:37] LABS: CARBON DIOXIDE 42.9 mmol/L (21.0-32.0)
[2018-02-19 08:34] VITALS: BP 136/66
[2018-02-19 21:16] VITALS: BP 118/64
[2018-02-20 04:17] VITALS: BP 111/54
[2018-02-20 06:41] LABS: BASOPHILS 0.6 % (0-2); EOSINOPHILS 0 % (0-7); HEMATOCRIT 22.2 % (42.0-54.0); IMMATURE GRANULOCYTES 0.3 % (0-5); LYMPHOCYTES 24.5 % (15-50); MCHC 31.1 g/dL (31.0-37.0); MCV 90.2 fL (80.0-100.0); MEAN PLATELET VOLUME 9.1 fL (7.4-10.4); MONOCYTES 20.4 % (2-11); NEUTROPHILS 54.2 % (40-80); PLATELET COUNT 185 10x3/uL (130-400); RBC 2.46 10x6/uL (4.20-6.10); RDW 14.7 % (11.5-14.5)
[2018-02-20 07:03] LABS: CALCIUM 7.7 mg/dL (8.5-10.1); CHLORIDE - SERUM 104 mmol/L (98-107); CREATININE - SERUM 0.8 mg/dL (0.6-1.3); GLUCOSE 86 mg/dL (74-106); POTASSIUM - SERUM 3.2 mmol/L (3.5-5.1); SODIUM 145 mmol/L (136-145); eGFR NON AFRICAN AMERICAN > 90 mL/min (90-120)
[2018-02-20 07:07] LABS: WBC 3.4 10x3/uL (4.8-10.8)
[2018-02-20 07:08] LABS: HEMOGLOBIN 6.9 g/dL (13.5-17.5)
[2018-02-20 07:09] LABS: CALC OSMOLALITY 285 mosm/kg (275-300); UREA NITROGEN 7 mg/dL (7-18)
[2018-02-20 07:10] LABS: CARBON DIOXIDE 43.6 mmol/L (21.0-32.0)
[2018-02-20 08:43] VITALS: BP 111/62
[2018-02-20 21:31] VITALS: BP 118/68
[2018-02-21 06:03] VITALS: BP 102/54
[2018-02-21 06:46] LABS: BASOPHILS 0.3 % (0-2); EOSINOPHILS 0.3 % (0-7); IMMATURE GRANULOCYTES 0.3 % (0-5); LYMPHOCYTES 22.5 % (15-50); MCH 28.2 pg (26.0-34.0); MCV 88.3 fL (80.0-100.0); MEAN PLATELET VOLUME 9.5 fL (7.4-10.4); MONOCYTES 19.4 % (2-11); NEUTROPHILS 57.2 % (40-80); RDW 14.5 % (11.5-14.5); WBC 3.9 10x3/uL (4.8-10.8)
[2018-02-21 06:57] LABS: CALC OSMOLALITY 284 mosm/kg (275-300); CALCIUM 8.2 mg/dL (8.5-10.1); CHLORIDE - SERUM 102 mmol/L (98-107); CREATININE - SERUM 0.8 mg/dL (0.6-1.3); GLUCOSE 97 mg/dL (74-106); POTASSIUM - SERUM 3.7 mmol/L (3.5-5.1); SODIUM 144 mmol/L (136-145); UREA NITROGEN 6 mg/dL (7-18); eGFR NON AFRICAN AMERICAN > 90 mL/min (90-120)
[2018-02-21 07:01] LABS: CARBON DIOXIDE 42.7 mmol/L (21.0-32.0)
[2018-02-21 07:09] LABS: HEMATOCRIT 31.6 % (42.0-54.0); HEMOGLOBIN 10.1 g/dL (13.5-17.5); PLATELET COUNT 105 10x3/uL (130-400); RBC 3.58 10x6/uL (4.20-6.10)
[2018-02-21 14:11] VITALS: BP 113/62
[2018-02-21 20:00] VITALS: BP 140/75
[2018-02-22 06:05] LABS: BASOPHILS 0 % (0-2); EOSINOPHILS 0 % (0-7); HEMATOCRIT 33.6 % (42.0-54.0); HEMOGLOBIN 10.6 g/dL (13.5-17.5); LYMPHOCYTES 25.3 % (15-50); MCH 28.1 pg (26.0-34.0); MCHC 31.5 g/dL (31.0-37.0); MCV 89.1 fL (80.0-100.0); MONOCYTES 19.5 % (2-11); NEUTROPHILS 55.2 % (40-80); RBC 3.77 10x6/uL (4.20-6.10); RDW 14.1 % (11.5-14.5); WBC 3.6 10x3/uL (4.8-10.8)
[2018-02-22 06:10] VITALS: BP 110/47
[2018-02-22 06:16] LABS: PLATELET COUNT 176 10x3/uL (130-400)
[2018-02-22 06:30] LABS: CALC OSMOLALITY 286 mosm/kg (275-300); CALCIUM 8.1 mg/dL (8.5-10.1); CHLORIDE - SERUM 102 mmol/L (98-107); CREATININE - SERUM 0.8 mg/dL (0.6-1.3); GLUCOSE 96 mg/dL (74-106); POTASSIUM - SERUM 3.5 mmol/L (3.5-5.1); SODIUM 145 mmol/L (136-145); UREA NITROGEN 6 mg/dL (7-18); eGFR NON AFRICAN AMERICAN > 90 mL/min (90-120)
[2018-02-22 06:50] LABS: CARBON DIOXIDE 45.1 mmol/L (21.0-32.0)
[2018-02-22 08:21] VITALS: BP 111/50
[2018-02-22 12:38] VITALS: BP 124/65
[2018-02-22] MEDS ORDERED: ANUSOL-HC25 MG RC (12:49)
== END 2018-02-22 14:59 | disposition home or self-care (01) | DRG 378 ==
LOC: D.ER 12:55 → D.EDHOLD 13:46 → D.ICU 13:46 → D.MS 13:46 → D.ICU 14:13 → D.MS 02-13 17:03
PROVIDERS: Family Medicine; Internal Medicine Gastroenterology; Internal Medicine Nephrology
PROC: 0DJ08ZZ Inspection of Upper Intestinal Tract, Via Natural or Artificial Opening Endoscopic (ICD-10-PCS; principal; 2018-02-12 14:30)
PROC: 0DBF8ZZ Excision of Right Large Intestine, Via Natural or Artificial Opening Endoscopic (ICD-10-PCS; 2018-02-15)
PROC: 0DBP8ZZ Excision of Rectum, Via Natural or Artificial Opening Endoscopic (ICD-10-PCS; 2018-02-15)
PROC: 0W3P8ZZ Control Bleeding in Gastrointestinal Tract, Via Natural or Artificial Opening Endoscopic (ICD-10-PCS; 2018-02-15)
PROC: 0W3P8ZZ Control Bleeding in Gastrointestinal Tract, Via Natural or Artificial Opening Endoscopic (ICD-10-PCS; 2018-02-19)
DX: K92.2 Gastrointestinal hemorrhage, unspecified (principal); D62 Acute posthemorrhagic anemia; J96.11 Chronic respiratory failure with hypoxia; N17.9 Acute kidney failure, unspecified; J44.9 Chronic obstructive pulmonary disease, unspecified; I50.9 Heart failure, unspecified; I11.0 Hypertensive heart disease with heart failure; K63.5 Polyp of colon

== ENCOUNTER → 2018-02-25 12:27 | Outpatient (CLI) | payer MEDICARE, OTHER ==
[2018-02-12 12:37] VITALS: BMI 31.8
[~2018-02-25 12:27] MED LIST changes: +ANUSOL-HC25 MG RC
[2018-02-25 13:36] LABS: HEMATOCRIT 33.3 % (42.0-54.0); HEMOGLOBIN 10.1 g/dL (13.5-17.5); MCH 27.5 pg (26.0-34.0); MCHC 30.3 g/dL (31.0-37.0); MCV 90.7 fL (80.0-100.0); MEAN PLATELET VOLUME 10.1 fL (7.4-10.4); PLATELET COUNT 197 10x3/uL (130-400); RBC 3.67 10x6/uL (4.20-6.10); RDW 14.2 % (11.5-14.5); WBC 3.8 10x3/uL (4.8-10.8)
[2018-02-25 14:33] LABS: LYMPHOCYTES 46 % (15-50); MONOCYTES 9 % (2-11); NEUTROPHILS 43 % (40-80)
[2018-02-25 14:34] LABS: PLATELET ESTIMATE NORMAL
== END | disposition home or self-care (01) ==
LOC: D.LABREF 12:27
PROVIDERS: Family Medicine
DX: K92.1 Melena (principal); D62 Acute posthemorrhagic anemia

== ENCOUNTER 2018-03-30 14:39 | Inpatient (IN) | payer MEDICARE, OTHER ==
[~2018-03-30] VITALS: Ht 172.7 cm; Wt 93.0 kg
--- NOTE | ~2018-03-30 | MORECARE ---
CASE MANAGEMENT DISCHARGE SUMMARY PATIENT: SEGUN KANG UNIT: [id number] ADM DATE: 03/30/18 AGE: 77 : 41 SEX: M ROOM/BED: D.1209 AUTHOR: ADRIAN MERCADO PHYSICIAN: REFERRING PHYSICIAN: PRISCILLA GALLO MD DATE OF SERVICE: 04/02/18 Discharge Plan Patient Name: SEGUN KANG Facility: [facility]:[place] : 1940 Planned Disposition: Home Anticipated Discharge Date: 04/01/18 Discharge Date: 04/02/2018 Expected LOS: 2 Initial Reviewer: [email or web address] Initial Review Date: 03/30/2018 Generated: 04/02/18 3:59 pm Comments DCP- Discharge Planning Updated by [email or web address]: Deepika Robles on 04/01/18 12:[address] CM called [facility] about anticipated discharge tomorrow. Spoke with Radha who informed CM that agency will plan to resume home health services Thursday. CM informed patient that home health will resume services Thursday. CM explained and served DC IMM. CM faxed records as requested. Upon discharge CM will need to fax home health DC Summary, DC Instructions, and DC med list. CM will continue to follow and assist as needed with discharge planning / needs. DCP- Discharge Planning Updated by [email or web address]: Breanne Chan on 03/30/18 3:[address] Patient Name: SEGUN KANG Admission Status: ER Accout number: [id number] Admission Date: 03-30-2018 : 1940 Admission Diagnosis: Attending: PRISCILLA GALLO Current LOS: 1 Anticipated DC Date: 04-01-2018 Planned Disposition: Home Primary Insurance: MEDICARE A & B Discharge Planning Comments CM met with patient and his to complete initial dc planning assessment. CM educated patient on the CM role and verbal consent given by patient to complete assessment. Patient lives at home with his and reports he is independent with his ADL's and IADL's. At discharge patient plans to return home with his and resumption of [facility] and feels this is a safe discharge. Patient denied known discharge needs at this time. CM will continue to follow and will assist as needed with dc plans/needs. See below for more assessment information. Healthcare Management: Breanne Chan RN, [facility] DCPIA - Discharge Planning Initial Assessment Updated by [email or web address]: Breanne Chan on 03/30/18 4:24 pm * Is the patient Alert and Oriented? Yes * How many steps to enter\exit or inside your home? Three * PCP Dr. Lo * Pharmacy [facility] [address] * Preadmission Environment Home with Family * ADLs Independent * Equipment BIPAP Nebulizer Oxygen Walker * List name and contact numbers for known caregivers / representatives who currently or will assist patient after discharge: Jolene Kang - spouse - [phone] Hrary Contreras - Neighbor/ip litigation associate - [phone] * Verbal permission to speak to the caregivers and representatives has been obtained from the patient. Yes * Community resources currently utilized Home Health Other * Please name any agencies selected above. [facility] * Additional services required to return to the preadmission environment? No * Can the patient safely return to the preadmission environment? Yes * Has this patient been hospitalized within the prior 30 days at any hospital? No Last DP export: 04/01/18 1:35 Patient Name: SEGUN KANG Page [id number] at 1459 All edits/amendments must be made on the electronic document DICTATION DATE: 04/02/181458 ENROLLMENT SERVICES VICE PRESIDENT: ADEBAYO 04/02/189 RPT#: [id number] DC DATE:04/02/18 STATUS: DIS IN [facility] [address] [place] [address] END OF REPORT
--- NOTE | ~2018-03-30 | MORECARE ---
CASE MANAGEMENT DISCHARGE SUMMARY PATIENT: SEGUN KANG UNIT: [id number] ADM DATE: 03/30/18 AGE: 77 : 41 SEX: M ROOM/BED: D.1209 AUTHOR: ROGELIO,DOC PHYSICIAN: REFERRING PHYSICIAN: PRISCILLA GALLO MD DATE OF SERVICE: 04/01/18 Discharge Plan Patient Name: SEGUN KANG Facility: [facility]:[place] : 1940 Planned Disposition: Home Anticipated Discharge Date: 04/01/18 Discharge Date: Expected LOS: 2 Initial Reviewer: [email or web address] Initial Review Date: 03/30/2018 Generated: 04/01/18 3:35 pm Comments DCP- Discharge Planning Updated by [email or web address]: Deepika Robles on 04/01/18 12:[address] CM called [facility] about anticipated discharge tomorrow. Spoke with Radha who informed CM that agency will plan to resume home health services Thursday. CM informed patient that home health will resume services Thursday. CM explained and served DC IMM. CM faxed records as requested. Upon discharge CM will need to fax home health DC Summary, DC Instructions, and DC med list. CM will continue to follow and assist as needed with discharge planning / needs. DCP- Discharge Planning Updated by [email or web address]: Breanne Chan on 03/30/18 3:[address] Patient Name: SEGUN KANG Admission Status: ER Accout number: [id number] Admission Date: 03-30-2018 : 1940 Admission Diagnosis: Attending: PRISCILLA GALLO Current LOS: 1 Anticipated DC Date: 04-01-2018 Planned Disposition: Home Primary Insurance: MEDICARE A & B Discharge Planning Comments CM met with patient and his to complete initial dc planning assessment. CM educated patient on the CM role and verbal consent given by patient to complete assessment. Patient lives at home with his and reports he is independent with his ADL's and IADL's. At discharge patient plans to return home with his and resumption of [facility] and feels this is a safe discharge. Patient denied known discharge needs at this time. CM will continue to follow and will assist as needed with dc plans/needs. See below for more assessment information. Drapery Examiner: Breanne Chan RN, [facility] DCPIA - Discharge Planning Initial Assessment Updated by [email or web address]: Breanne Chan on 03/30/18 4:24 pm * Is the patient Alert and Oriented? Yes * How many steps to enter\exit or inside your home? Three * PCP Dr. Lo * Pharmacy [facility] [address] * Preadmission Environment Home with Family * ADLs Independent * Equipment BIPAP Nebulizer Oxygen Walker * List name and contact numbers for known caregivers / representatives who currently or will assist patient after discharge: Jolene Kang - spouse - [phone] Harry Contreras - Neighbor/food scientist - [phone] * Verbal permission to speak to the caregivers and representatives has been obtained from the patient. Yes * Community resources currently utilized Home Health Other * Please name any agencies selected above. [facility] * Additional services required to return to the preadmission environment? No * Can the patient safely return to the preadmission environment? Yes * Has this patient been hospitalized within the prior 30 days at any hospital? No External Providers External Provider: [facility] [facility] Next Contact Date: Service Request Date: Service Type: Resolution: Reviewer: Comments: Last DP export: 04/01/18 1:04 Patient Name: SEGUN KANG Page [id number] at 1435 All edits/amendments must be made on the electronic document DICTATION DATE: 04/01/181434 IN FLIGHT REFUELING OPERATOR: ADEBAYO 04/01/18 143 RPT#: [id number] DC DATE: STATUS: ADM IN [facility] [address] [place] [address] END OF REPORT
--- NOTE | ~2018-03-30 | MORECARE ---
CASE MANAGEMENT DISCHARGE SUMMARY PATIENT: SEGUN ALEX UNIT: [id number] ADM DATE: 03/30/18 AGE: 77 : 41 SEX: M ROOM/BED: D.E15 AUTHOR: ADRIAN MERCADO PHYSICIAN: REFERRING PHYSICIAN: PRISCILLA GALLO MD DATE OF SERVICE: 03/30/18 Discharge Plan Patient Name: SEGUN ALEX [facility] [facility] 1940 Planned Disposition: Home Anticipated Discharge Date: 04/01/18 Discharge Date: Expected LOS: 2 Initial Reviewer: [email or web address] Initial Review Date: 03/30/2018 Generated: 03/30/18 5:23 pm Patient Name: SEGUN ALEX Page 32212 at 1623 All edits/amendments must be made on the electronic document DICTATION DATE: 03/30/181621 BUTTON PUNCHER: ADEBAYO 03/30/18 162 RPT#: [id number] DC DATE: STATUS: ADM IN [facility] [address] [place] [address] END OF REPORT
--- NOTE | ~2018-03-30 | MORECARE ---
CASE MANAGEMENT DISCHARGE SUMMARY PATIENT: SEGUN KANG UNIT: [id number] ADM DATE: 03/30/18 AGE: 77 : 41 SEX: M ROOM/BED: D.E15 AUTHOR: ROGELIODOC PHYSICIAN: REFERRING PHYSICIAN: PRISCILLA GALLO MD DATE OF SERVICE: 03/30/18 Discharge Plan Patient Name: SEGUN KANG Facility: [facility]:[place] : 1940 Planned Disposition: Home Anticipated Discharge Date: 04/01/18 Discharge Date: Expected LOS: 2 Initial Reviewer: [email or web address] Initial Review Date: 03/30/2018 Generated: 03/30/18 5:32 pm DCP- Discharge Planning Updated by [email or web address]: Breanne Chan on 03/30/18 3:[address] Patient Name: SEGUN KANG Admission Status: ER Accout number: [id number] Admission Date: 03-30-2018 : 1940 Admission Diagnosis: Attending: PRISCILLA GALLO Current LOS: 1 Anticipated DC Date: 04-01-2018 Planned Disposition: Home Primary Insurance: MEDICARE A & B Discharge Planning Comments CM met with patient and his to complete initial dc planning assessment. CM educated patient on the CM role and verbal consent given by patient to complete assessment. Patient lives at home with his and reports he is independent with his ADL's and IADL's. At discharge patient plans to return home with his and resumption of [facility] and feels this is a safe discharge. Patient denied known discharge needs at this time. CM will continue to follow and will assist as needed with dc plans/needs. See below for more assessment information. Aegis Console Operator Track: Breanne Chan RN, [facility] DCPIA - Discharge Planning Initial Assessment Updated by [email or web address]: Breanne Chan on 03/30/18 4:24 pm * Is the patient Alert and Oriented? Yes * How many steps to enter\exit or inside your home? Three * PCP Dr. Lo * Pharmacy [facility] [address] * Preadmission Environment Home with Family * ADLs Independent * Equipment BIPAP Nebulizer Oxygen Walker * List name and contact numbers for known caregivers / representatives who currently or will assist patient after discharge: Jolene Kang - spouse - [phone] Harry Contreras - Neighbor/core stacker - [phone] * Verbal permission to speak to the caregivers and representatives has been obtained from the patient. Yes * Community resources currently utilized Home Health Other * Please name any agencies selected above. [facility] * Additional services required to return to the preadmission environment? No * Can the patient safely return to the preadmission environment? Yes * Has this patient been hospitalized within the prior 30 days at any hospital? No Last DP export: 03/30/18 3:23 Patient Name: SEGUN KANG Page 03771 at 1632 All edits/amendments must be made on the electronic document DICTATION DATE: 03/30/18 1632 FREIGHT TEAM ASSOCIATE: ADEBAYO 03/30/18 1632 RPT#: [id number] [place] DATE: STATUS: ADM IN [facility] [address] [place] [address] END OF REPORT
--- NOTE | ~2018-03-30 | MORECARE ---
CASE MANAGEMENT DISCHARGE SUMMARY PATIENT: SEGUN KANG UNIT: [id number] ADM DATE: 03/30/18 AGE: 77 : 41 SEX: M ROOM/BED: D.1209 AUTHOR: ROGELIO,DOC PHYSICIAN: REFERRING PHYSICIAN: PRISCILLA GALLO MD DATE OF SERVICE: 04/01/18 Discharge Plan Patient Name: SEGUN KANG Facility: [facility]:[place] : 1940 Planned Disposition: Home Anticipated Discharge Date: 04/01/18 Discharge Date: Expected LOS: 2 Initial Reviewer: [email or web address] Initial Review Date: 03/30/2018 Generated: 04/01/18 3:04 pm Comments DCP- Discharge Planning Updated by [email or web address]: Deepika Robles on 04/01/18 12:[address] CM called [facility] about anticipated discharge tomorrow. Spoke with Radha who informed CM that agency will plan to resume home health services Thursday. CM informed patient that home health will resume services Thursday. CM explained and served DC IMM. CM faxed records as requested. Upon discharge CM will need to fax home health DC Summary, DC Instructions, and DC med list. CM will continue to follow and assist as needed with discharge planning / needs. DCP- Discharge Planning Updated by [email or web address]: Breanne Chan on 03/30/18 3:[address] Patient Name: SEGUN KANG Admission Status: ER Accout number: [id number] Admission Date: 03-30-2018 : 1940 Admission Diagnosis: Attending: PRISCILLA GALLO Current LOS: 1 Anticipated DC Date: 04-01-2018 Planned Disposition: Home Primary Insurance: MEDICARE A & B Discharge Planning Comments CM met with patient and his to complete initial dc planning assessment. CM educated patient on the CM role and verbal consent given by patient to complete assessment. Patient lives at home with his and reports he is independent with his ADL's and IADL's. At discharge patient plans to return home with his and resumption of [facility] and feels this is a safe discharge. Patient denied known discharge needs at this time. CM will continue to follow and will assist as needed with dc plans/needs. See below for more assessment information. Teenage Babysitter: Breanne Chan RN, CCM DCPIA - Discharge Planning Initial Assessment Updated by [email or web address]: Breanne Chan on 03/30/18 4:24 pm * Is the patient Alert and Oriented? Yes * How many steps to enter\exit or inside your home? Three * PCP Dr. Lo * Pharmacy [facility] [address] * Preadmission Environment Home with Family * ADLs Independent * Equipment BIPAP Nebulizer Oxygen Walker * List name and contact numbers for known caregivers / representatives who currently or will assist patient after discharge: Jolene Kang - spouse - [phone] Harry Contreras - Neighbor/vending machine filler - [phone] * Verbal permission to speak to the caregivers and representatives has been obtained from the patient. Yes * Community resources currently utilized Home Health Other * Please name any agencies selected above. [facility] * Additional services required to return to the preadmission environment? No * Can the patient safely return to the preadmission environment? Yes * Has this patient been hospitalized within the prior 30 days at any hospital? No Last DP export: 03/30/18 3:32 Patient Name: SEGUN KANG Page 11829 at 1405 All edits/amendments must be made on the electronic document DICTATION DATE: 04/01/181403 HEAD OF VISUAL MERCHANDISING: ADEBAYO 04/01/181403 RPT#: [id number] DC DATE: STATUS: ADM IN [facility] [address] [place] [address] END OF REPORT
[2018-03-30 15:28] LABS: ALKALINE PHOSPHATASE 61 U/L (46-116); ALT (SGPT) 16 U/L (10-68); APTT 25.2 SECONDS (22.8-39.4); CALC OSMOLALITY 280 mosm/kg (275-300); CARBON DIOXIDE 35.9 mmol/L (21.0-32.0); CHLORIDE - SERUM 99 mmol/L (98-107); CREATININE - SERUM 1.1 mg/dL (0.6-1.3); GLUCOSE 110 mg/dL (74-106); INR 0.99 (0.85-1.17); PROTIME 12.5 SECONDS (11.6-15.0); SODIUM 139 mmol/L (136-145); UREA NITROGEN 17 mg/dL (7-18); eGFR NON AFRICAN AMERICAN 69 mL/min (90-120)
[2018-03-30 15:41] LABS: CKMB 1.6 U/L (0.0-3.6); CREATINE KINASE 46 UL (21-232); PRO BNP 216 pg/mL (0-450); TROPONIN-I < 0.017 ng/mL (0.000-0.060)
[2018-03-30 16:08] LABS: BASOPHILS 0.1 % (0-2); EOSINOPHILS 0 % (0-7); HEMATOCRIT 36.7 % (42.0-54.0); HEMOGLOBIN 11.5 g/dL (13.5-17.5); IMMATURE GRANULOCYTES 0.1 % (0-5); LYMPHOCYTES 9.4 % (15-50); MCH 28.4 pg (26.0-34.0); MCHC 31.3 g/dL (31.0-37.0); MCV 90.6 fL (80.0-100.0); MEAN PLATELET VOLUME 9.3 fL (7.4-10.4); MONOCYTES 7.1 % (2-11); NEUTROPHILS 83.3 % (40-80); PLATELET COUNT 208 10x3/uL (130-400); RBC 4.05 10x6/uL (4.20-6.10); RDW 16.8 % (11.5-14.5)
[2018-03-30 16:10] VITALS: BP 127/52
[2018-03-30 17:09] VITALS: BP 141/68
[2018-03-30 18:14] VITALS: BP 137/61
[2018-03-30 19:15] VITALS: BP 144/72
[2018-03-30 22:58] VITALS: BP 128/62; BMI 31.2
[2018-03-31] VITALS: BP 126/69
[2018-03-31 04:00] VITALS: BP 115/74
[2018-03-31 05:30] LABS: BASOPHILS 0 % (0-2); EOSINOPHILS 0 % (0-7); HEMATOCRIT 35.5 % (42.0-54.0); IMMATURE GRANULOCYTES 0.3 % (0-5); LYMPHOCYTES 13.4 % (15-50); MCV 90.3 fL (80.0-100.0); MEAN PLATELET VOLUME 9.2 fL (7.4-10.4); MONOCYTES 0.6 % (2-11); NEUTROPHILS 85.7 % (40-80); PLATELET COUNT 195 10x3/uL (130-400); RBC 3.93 10x6/uL (4.20-6.10); RDW 16.5 % (11.5-14.5)
[2018-03-31 05:40] LABS: ALBUMIN 2.7 g/dL (3.4-5.0); ALKALINE PHOSPHATASE 54 U/L (46-116); ALT (SGPT) 15 U/L (10-68); BILIRUBIN - TOTAL 0.39 mg/dL (0.2-1.3); CALC OSMOLALITY 286 mosm/kg (275-300); CALCIUM 8.4 mg/dL (8.5-10.1); CARBON DIOXIDE 35.8 mmol/L (21.0-32.0); CHLORIDE - SERUM 100 mmol/L (98-107); GLUCOSE 153 mg/dL (74-106); MAGNESIUM - SERUM 2.1 mg/dL (1.8-2.4); PHOSPHOROUS 3.6 mg/dL (2.5-4.9); POTASSIUM - SERUM 3.8 mmol/L (3.5-5.1); PROTEIN - SERUM 6.6 g/dL (6.4-8.2); SODIUM 141 mmol/L (136-145); UREA NITROGEN 21 mg/dL (7-18); eGFR NON AFRICAN AMERICAN 77 mL/min (90-120)
[2018-03-31 05:41] LABS: WBC 3.5 10x3/uL (4.8-10.8)
[2018-03-31 08:13] VITALS: BP 101/69
[2018-03-31 12:16] VITALS: BP 127/62
[2018-03-31 16:18] VITALS: BP 108/61
[2018-03-31 20:00] VITALS: BP 115/63
[2018-04-01] VITALS: BP 122/60
[2018-04-01 04:00] VITALS: BP 135/57
[2018-04-01 06:13] LABS: BASOPHILS 0 % (0-2); EOSINOPHILS 0 % (0-7); HEMATOCRIT 32.2 % (42.0-54.0); HEMOGLOBIN 10.2 g/dL (13.5-17.5); IMMATURE GRANULOCYTES 0.1 % (0-5); LYMPHOCYTES 8.5 % (15-50); MCH 28.2 pg (26.0-34.0); MCHC 31.7 g/dL (31.0-37.0); MEAN PLATELET VOLUME 9.4 fL (7.4-10.4); MONOCYTES 4.3 % (2-11); NEUTROPHILS 87.1 % (40-80); PLATELET COUNT 196 10x3/uL (130-400); RBC 3.62 10x6/uL (4.20-6.10); RDW 16.9 % (11.5-14.5)
[2018-04-01 06:20] LABS: WBC 7.3 10x3/uL (4.8-10.8)
[2018-04-01 06:31] LABS: CALC OSMOLALITY 290 mosm/kg (275-300); CALCIUM 8.5 mg/dL (8.5-10.1); CARBON DIOXIDE 35.1 mmol/L (21.0-32.0); CHLORIDE - SERUM 102 mmol/L (98-107); CREATININE - SERUM 0.9 mg/dL (0.6-1.3); GLUCOSE 137 mg/dL (74-106); POTASSIUM - SERUM 3.7 mmol/L (3.5-5.1); SODIUM 143 mmol/L (136-145); UREA NITROGEN 24 mg/dL (7-18); VANCOMYCIN - TROUGH 10.1 ug/mL (10.0-20.0); eGFR NON AFRICAN AMERICAN 87 mL/min (90-120)
[2018-04-01 09:17] VITALS: BP 121/54
[2018-04-01 09:53] VITALS: Ht 172.7 cm; Wt 93.0 kg
[2018-04-01 12:00] VITALS: BP 119/54
[2018-04-01 19:48] VITALS: BP 131/67
[2018-04-02 00:21] VITALS: BP 138/76
[2018-04-02 05:14] LABS: BASOPHILS 0 % (0-2); EOSINOPHILS 0 % (0-7); HEMOGLOBIN 9.9 g/dL (13.5-17.5); IMMATURE GRANULOCYTES 0.1 % (0-5); LYMPHOCYTES 5.6 % (15-50); MCH 27.9 pg (26.0-34.0); MCHC 30.9 g/dL (31.0-37.0); MCV 90.1 fL (80.0-100.0); MEAN PLATELET VOLUME 9.5 fL (7.4-10.4); MONOCYTES 4.3 % (2-11); PLATELET COUNT 194 10x3/uL (130-400); RBC 3.55 10x6/uL (4.20-6.10); RDW 17.2 % (11.5-14.5); WBC 6.9 10x3/uL (4.8-10.8)
[2018-04-02 05:40] VITALS: BP 142/72
[2018-04-02 06:05] LABS: CALC OSMOLALITY 288 mosm/kg (275-300); CALCIUM 8.4 mg/dL (8.5-10.1); CARBON DIOXIDE 34.4 mmol/L (21.0-32.0); CHLORIDE - SERUM 103 mmol/L (98-107); CREATININE - SERUM 0.9 mg/dL (0.6-1.3); GLUCOSE 135 mg/dL (74-106); POTASSIUM - SERUM 3.7 mmol/L (3.5-5.1); SODIUM 142 mmol/L (136-145); UREA NITROGEN 24 mg/dL (7-18); eGFR NON AFRICAN AMERICAN 87 mL/min (90-120)
[2018-04-02] MEDS ORDERED: ATROVENT 0.02%2.5 ML UPD (08:59)
[2018-04-02] MEDS ORDERED: SINGULAIR10 MG PO (09:00)
[2018-04-02] MEDS ORDERED: PREDNISONE10 MG PO (09:37)
[2018-04-02] MEDS ORDERED: DOXYCYCLINE HY100 M2 PO (09:41)
[2018-04-02] MEDS ORDERED: OMNICEF300 MG PO (09:42)
[2018-04-02 11:56] VITALS: BP 118/64
== END 2018-04-02 13:49 | disposition home health service (06) | DRG 189 ==
LOC: D.ER 14:39 → D.EDHOLD 16:02 → D.M3 16:02
PROVIDERS: Family Medicine; Internal Medicine Nephrology
DX: J96.21 Acute and chronic respiratory failure with hypoxia (principal); J18.9 Pneumonia, unspecified organism; J47.0 Bronchiectasis with acute lower respiratory infection; J98.11 Atelectasis; I50.32 Chronic diastolic (congestive) heart failure; J96.22 Acute and chronic respiratory failure with hypercapnia; Z99.81 Dependence on supplemental oxygen; I25.10 Atherosclerotic heart disease of native coronary artery without angina pectoris; E78.5 Hyperlipidemia, unspecified; N28.1 Cyst of kidney, acquired; I11.0 Hypertensive heart disease with heart failure; Z95.1 Presence of aortocoronary bypass graft; Z87.891 Personal history of nicotine dependence

== ENCOUNTER → 2018-04-16 11:34 | Outpatient (CLI) | payer MEDICARE, OTHER ==
[2018-04-01 09:53] VITALS: BMI 31.1
[~2018-04-16 11:34] MED LIST changes: +ATROVENT 0.02%2.5 ML UPD; +DOXYCYCLINE HY100 M2 PO; +OMNICEF300 MG PO; +SINGULAIR10 MG PO
[2018-04-16 15:07] LABS: APPEARANCE CLEAR (CLEAR); COLOR YELLOW (YELLOW); GLUCOSE NEGATIVE (NEGATIVE); NITRITE NEGATIVE (NEGATIVE); PROTEIN NEGATIVE (NEGATIVE); SPECIFIC GRAVITY 1.015 (1.005-1.020)
[2018-04-16 15:08] LABS: BILIRUBIN NEGATIVE (NEGATIVE); KETONE NEGATIVE (NEGATIVE); UROBILINOGEN NORMAL (NORMAL)
== END | disposition home or self-care (01) ==
LOC: D.LABREF 11:34
PROVIDERS: Family Medicine
DX: R30.9 Painful micturition, unspecified (principal)

== ENCOUNTER 2018-10-12 08:00 | Outpatient (CLI) | payer MEDICARE, OTHER ==
[2018-04-01 09:53] VITALS: BMI 31.1
== END 2018-10-12 16:34 | disposition home or self-care (01) ==
LOC: D.MAMMO 08:00
PROVIDERS: ATTEND Family Medicine
DX: R92.8 Other abnormal and inconclusive findings on diagnostic imaging of breast (principal)

== ENCOUNTER → 2018-10-25 13:34 | Outpatient (CLI) | payer MEDICARE, OTHER ==
[2018-04-01 09:53] VITALS: BMI 31.1
== END | disposition home or self-care (01) ==
LOC: D.RT 13:34
PROVIDERS: ATTEND Internal Medicine Pulmonary Disease
DX: J44.9 Chronic obstructive pulmonary disease, unspecified (principal); Z87.01 Personal history of pneumonia (recurrent)

== ENCOUNTER → 2018-11-17 11:24 | Outpatient (CLI) | payer MEDICARE, OTHER ==
[2018-04-01 09:53] VITALS: BMI 31.1
== END | disposition home or self-care (01) ==
LOC: D.HCCARDIO 11:24
PROVIDERS: ATTEND Internal Medicine Cardiovascular Disease
DX: I35.0 Nonrheumatic aortic (valve) stenosis (principal); I25.10 Atherosclerotic heart disease of native coronary artery without angina pectoris; I34.0 Nonrheumatic mitral (valve) insufficiency; J44.9 Chronic obstructive pulmonary disease, unspecified

== ENCOUNTER 2018-12-08 11:08 | Outpatient (CLI) | payer MEDICARE, OTHER ==
[~2018-12-08] VITALS: Ht 172.7 cm; Wt 96.8 kg
--- NOTE | ~2018-12-08 | HEMODYNAMI ---
PATIENT:SEGUN ALEX MEDICAL RECORD: [id number] : 42 LOCATION:D.CAT ADMISSION DATE: 12/08/18 Generatedon:12/08/201814:17 Patient name: SEGUN ALEX Patient #: [id number] : 1940 Date of study: 12/08/2018 Page: Of Hemodynamic Procedure Report Patient Data Patient Demographics Procedure consent was obtained First Name: SEGUN Gender: Male Last Name: ISAI : 1940 Middle Initial: KOKO Age: 78 year(s) Patient #: [id number] Race: SSN: [id number] Additional ID: [id number] Contact details Address: [address] [place] [address] [facility] State: [place] City: [place] Zip code: [address] Past Medical History Allergies Allergen Reaction Date Comments Reported Other allergy 12/08/2018 phenergan Admission Admission Data Admission Date: 12/08/2018 Admission Time: 11:08 Arrival Date: 12/08/2018 Arrival Time: 0:00 Admit Source: Other Insurance Payor: Private health insurance, Medicare [facility] #: [id number] Height (in.): 68 BSA: 2.1 (m2) Height (cm.): 172.72 BMI: 32.23 (kg/m2) Weight (lbs.): 212 Weight (kg.): 96.16 Lab Results Lab Result Date: 12/08/2018 Lab Result Time: 11:54 Biochemistry Name Units Result Min Max BUN mg/dl 20 --(----)*- 7 18 Creatinine mg/dl 1 --(--*-)-- 0.6 1.3 CBC Name Units Result Min Max Hematocrit % 39.2 -*(----)-- 42 54 Hemoglobin g/dl 13 -*(----)-- 13.5 17.5 Procedure Procedure Types Cath Procedure Diagnostic Procedure C Coronaries w/Grafts Aortic Root Angiography Sedation Charges Moderate Sedation up to 15 minutes PCI Procedure Coronary Stent Coronary Stent Initial Procedure Description Procedure Date Procedure Date: 12/08/2018 Procedure Start Time: 13:33 Procedure End Time: 14:03 Procedure Staff Name Function Prema Khan RT Scrub Herrera Lu RN Nurse Jez Mendez MD Performing Physician Allen Garsia RT Monitor Procedure Data Cath Procedure Fluoroscopy Diagnostic fluoroscopy Total fluoroscopy Time: 5.9 time: 5.9 min min Diagnostic fluoroscopy Total fluoroscopy dose: dose: 1511 mGy 1511 mGy Contrast Material Contrast Material Type Amount (ml) Isovue 300 161 Entry Location Entry Primary Successful Side Size Upsize Upsize Entry Closure Succes sful Closure Location (Fr) 1 (Fr) 2 (Fr) Remarks Device Remarks Femoral Right 5 Fr 6 Fr Exoseal artery Short Estimated blood loss: 10 ml Diagnostic catheters Device Type Used For End Catheter Placement MULTIPACK JL 4.0 5Fr Procedure catheter MULTIPACK 3DRC 5Fr Procedure catheter DIAGNOSTIC IM 5Fr Procedure catheter ([id number]) MULTIPACK Pigtail 5 Fr Procedure catheter Procedure Complications No complications Procedure Medications Medication Administration Route Dosage Oxygen etCO2 Nasal cannula 2 l/min Lidocaine 2% added to field 20 Heparin Flush Bag added to field 2 bags (1000units/500ml NS) 0.9% NaCl I.V. 100 ml/hr Versed I.V. 1 mg Fentanyl I.V. 50 mcg Versed I.V. 1 mg Fentanyl I.V. 50 mcg Heparin Bolus I.V. 69301 units Nitroglycerin IC/IA I.C. 100 mcg Plavix P.O. 600 mg Hemodynamics Rest BSA: 2.1 (m2) HGB: 13 (g/dl) O2 Consumption: Estimated: 240.41 (ml/min) O2 Consu mption indexed: Estimated:114.48 (ml/min/m) Heart Rate: 70 (bpm) Snapshots Pre Cath Intra NCS Post Cath Vital Signs Time Heart Resp SPO2 etCO2 NIBP Rhythm Pain Sedation Rate (ipm) (%) (mmHg) (mmHg) Status Level (bpm) 13:22:01 69 19 97 0 119/77(95) NSR 0 (11) 10(A) , No pain 13:27:00 74 16 98 0 Measuring NSR 0 (11) 10(A) , No pain 13:27:19 71 15 98 0 126/58(87) NSR 0 (11) 10(A) , No pain 13:31:45 66 17 98 0 111/63(87) NSR 0 (11) 10(A) , No pain 13:36:13 65 21 98 0 115/56(85) NSR 0 (11) 9(A) , No pain 13:40:44 68 29 98 0 114/62(82) NSR 0 (11) 9(A) , No pain 13:44:41 68 13 98 0 117/61(79) NSR 0 (11) 9(A) , No pain 13:48:39 67 14 98 0 109/63(81) NSR 0 (11) 9(A) , No pain 13:52:36 67 15 98 0 102/56(72) NSR 0 (11) 9(A) , No pain 13:56:38 70 16 98 0 92/49(62) NSR 0 (11) 9(A) , No pain 14:01:02 67 16 98 0 108/59(87) NSR 0 (11) 10(A) , No pain Medications Time Medication Route Dose Verified Delivered Reason Note s Effectiveness by by 13:20:46 Oxygen etCO2 2 Jez Buffie used for Nasal l/min Lance Lu RN procedure cannula 13:20:54 Lidocaine 2% added 20ml Jez Jez for local to vial Lance Mendez MD anesthetic field 13:21:00 Heparin Flush added 2 bags Jez Jez used for Bag to Lance Mendez MD procedure (1000units/500ml field NS) 13:21:08 0.9% NaCl I.V. 100 Jez Buffie Per physician ml/hr Lance Lu RN 13:32:38 Versed I.V. 1 mg Jez Buffie for sedation Lance Lu RN 13:32:44 Fentanyl I.V. 50 mcg Jez Buffie for sedation Lance Lu RN 13:44:06 Versed I.V. 1 mg Jez Buffie for sedation Lance Lu RN 13:44:10 Fentanyl I.V. 50 mcg Jez Buffie for sedation Lance Lu RN 13:48:18 Heparin Bolus I.V. 10,000 Jez Buffie for veri fied units Lance Lu RN anticoagulation with dr mendez 13:55:22 Nitroglycerin I.C. 100 Jez Jez for IC/IA mcg Lance Mendez MD vasodilation 14:01:27 Plavix P.O. 600 mg Jez Herrera Lu RN antiplatelet therapy Procedure Log Time Note 12:59:56 Patient allergic to Other allergyphenergan 13:00:06 Patient Weight : 212 lbs 13:00:10 Patient Height : 68 inches 13:00:10 Insurance Payor : Private health insurance, Medicare 13:00:54 Herrera Lu RN sent for patient. Start room use. 13:01:06 Arrival Date: 12/08/2018 12:00:00 AM 13:02:26 ACC Patient presents with Stable Angina CCS Anginal Class 2--Slight limitation of ordinary activity. 13:02:31 ACCPatient has been prescribed/administered the following anti-anginal medication within the last 2 weeks: ARB 13:02:59 Procedure Status Elective Heart Cath (OP). 13:03:03 Admit Source: Other 13:14:02 Time tracking: Regular hours (M-F 7:00 - 5:00) 13:14:06 Plan of Care:Hemodynamics will remain stable., Cardiac rhythm will remain stable., Comfort level will be maintained., Respiratory function will remain adequate., Patient/ family verbilizes understanding of procedure., Procedure tolerated without complication., Recovers from procedure without complications.. 13:14:50 Patient received from Pre/Post Procedure Room to CCL 2 Alert and oriented. Tansferred to table in Supine position. 13:14:51 Warm blankets applied, and odell hugger turned on for patient comfort. 13:14:52 Signed procedure consent form obtained from patient. 13:14:53 ECG and BP/O2 sat monitors applied to patient. 13:14:53 Correct patient and procedure confirmed by team. 13:15:02 H&P Date Dictated: 12/07/2018 Within 30 days and on chart., H&P Addendum completed by physician on day of procedure. (MUST COMPLETE FOR ALL OUTPATIENTS). 13:15:03 Pre-procedure instructions explained to patient. 13:15:04 Pre-op teaching completed and patient verbalized understanding. 13:15:06 Family in waiting room. 13:20:20 Vital chart was started 13:20:21 Baseline sample Acquired. 13:20:24 Rhythm: sinus rhythm 13:20:26 Full Disclosure recording started 13:20:28 Is the patient allergic to Iodine/contrast media? No. 13:20:29 Is patient on blood thinner?No 13:20:30 Patient diabetic? No. 13:20:33 Previous problem with sedation/anesthesia? No ? 13:20:34 Snore? Yes 13:20:35 Sleep apnea? Yes 13:20:36 Opens mouth fully? Yes 13:20:36 Deviated septum? No 13:20:37 Sticks out tongue? Yes 13:20:39 Airway obstruction? No ? 13:20:40 Dentures? No ? 13:20:42 Pre procedure: right dorsailis pedis pulse Doppler 13:20:44 Patient pain scale 0/10 ?. 13:20:46 IV patent on arrival in left forearm with 0.9% NaCl at [facility]. 13:20:46 Oxygen 2 l/min etCO2 Nasal cannula was administered by Herrera Lu RN; used for procedure; 13:20:54 Lidocaine 2% 20ml vial added to field was administered by Jez Mendez MD; for local anesthetic; 13:21:00 Heparin Flush Bag (1000units/500ml NS) 2 bags added to field was administered by Jez Mendez MD; used for procedure; 13:21:08 Lab Result : BUN 20 mg/dl 13:21:08 0.9% NaCl 100 ml/hr I.V. was administered by Herrera Lu RN; Per physician; 13:21:09 Lab Result : Hematocrit 39.2 % 13:21:09 Lab Result : Hemoglobin 13 g/dl 13:21:09 Lab Result : Creatinine 1 mg/dl 13:21:11 Lab results completed and on chart. 13:21:13 Right groin area was prepped with chlora-prep and draped in sterile fashion 13:21:14 Sharps counted by scrub and verified by R.N. 13:21:14 Alarms reviewed by R. N. 13:21:16 ACIST Syringe (47373) opened to sterile field. 13:21:16 Use device set Femoral Dx 13:21:17 Medline Cath Pack ([id number]) opened to sterile field. 13:21:17 Bag Decanter (2002S) opened to sterile field. 13:21:18 ACIST Manifold (91128) opened to sterile field. 13:21:18 ACIST Hand Control (70826) opened to sterile field. 13:21:19 Tegaderm 4 x 4 (1626W) opened to sterile field. 13:21:20 SHEATH 5FR [employer] (JQT389) opened to sterile field. 13:21:20 EMERALD Guide Wire (014-104) opened to sterile field. 13:21:21 DIAGNOSTIC Multipack 5Fr catheter set (JK0252) opened to sterile field. 13:31:55 Physician arrived 13:31:56 --------ALL STOP TIME OUT------ 13:31:57 Final Timeout: patient, procedure, and site verified with staff and physician. All members of the team are in agreement. 13:32:00 Right groin site verified by team. 13:32:04 Fire Safety Assessment: A--An alcohol-based skin anteseptic being used preoperatively., C--Open oxygen or nitrous oxide is being used., D--An ESU, laser, or fiber-optic light is being used. 13:32:09 Physical assessment completed. ASA score P 2 - A patient with mild systemic disease as per Jez Mendez MD. 13:32:16 2) 60-89 Mildly reduced kidney function, and other findings (as for stage 1) point to kidney disease. 13:32:20 Maximum allowable contrast dose (3.7 X eGFR X 0.75)213 ml. 13:32:25 Sedation plan: IV Moderate Sedation Medication:Versed, Fentanyl 13:32:38 Versed 1 mg I.V. was administered by Herrera Lu RN; for sedation; 13:32:44 Fentanyl 50 mcg I.V. was administered by Herrera Lu RN; for sedation; 13:33:08 Procedure started. 13:33:13 Local anesthetic to right femoral artery with Lidocaine 2% by Jez Mendez MD.INITIAL ACCESS ONLY 13:33:25 A 5 Fr sheath was inserted into the Right Femoral artery 13:35:11 Zero performed for pressure channel P1 13:35:23 A MULTIPACK JL 4.0 5Fr catheter was advanced over the wire and used for Procedure. 13:36:05 LCA angiography performed. 13:37:31 Catheter exchanged over wire. 13:37:35 A MULTIPACK 3DRC 5Fr catheter was advanced over the wire and used for Procedure. 13:38:15 RCA angiography performed. 13:38:56 Catheter exchanged over wire. 13:39:25 A DIAGNOSTIC IM 5Fr catheter (686648M) was advanced over the wire and used for Procedure. 13:40:48 KING to LAD angiography performed. 13:41:26 Catheter exchanged over wire. 13:41:31 A MULTIPACK Pigtail 5 Fr catheter was advanced over the wire and used for Procedure. 13:42:07 ACCDominant side:Co-Dominant 13:42:29 Aortic Root visualized 13:44:06 Versed 1 mg I.V. was administered by Herrera Lu RN; for sedation; 13:44:10 Fentanyl 50 mcg I.V. was administered by Herrera Lu RN; for sedation; 13:44:17 Catheter removed. 13:44:29 SHEATH 6FR [employer] (MVY889) opened to sterile field. 13:44:29 INFLATOR Merit BasixCompak (XT6016) opened to sterile field. 13:44:37 TUBING High Pressure Extension Tubing (Lance) (VA9661X) opened to sterile field. 13:44:38 BMW 300cm [place] 2 J wire ([id number]) opened to sterile field. 13:44:45 Sheath upsized to a 6 Fr Short. 13:47:04 GUIDE 6FR XBLAD 3.5 catheter ([id number]) opened to sterile field. 13:47:27 Pre PCI Site: Torres Martinez OM1 has 90% stenosis. 13:47:29 ACC Pre-intervention JOSUE Flow is 3. 13:47:35 6 Fr XBLAD 3.5 guide catheter was inserted over the wire 13:47:48 BMW wire advanced. 13:48:18 Heparin Bolus 10,000 units I.V. was administered by Herrera Lu RN; for anticoagulation; verified with dr mendez 13:50:39 Wire advanced across lesion. 13:52:43 Place stent Inflation Number: 1 A COBRA RX 3.5 X 24 Stent was prepped and advanced across the 1st Ob Afia . The stent was deployed at 12 ACACIA for 0:10 (min:sec) . 13:53:15 Post PCI Site: Torres Martinez OM1 has 0% stenosis. 13:53:18 ACC Post-intervention JOSUE Flow is 3. 13:55:22 Nitroglycerin IC/IA 100 mcg I.C. was administered by Jez Mendez MD; for vasodilation; 13:57:05 Stent catheter was removed intact over wire. 13:57:07 Guide catheter removed. 13:57:07 Wire removed. 13:57:14 EXOSEAL 6Fr (EX600) opened to sterile field. 13:57:20 Sheath removed intact; hemostasis achieved with Exoseal to the Right Femoral artery. 13:57:22 Procedure ended.(Physican Out) 13:59:29 Fluoroscopy time 05.90 minutes. 13:59:34 Fluoroscopy dose: 1511 mGy 13:59:34 Flurop Dose total: 1511 13:59:42 Dose Area Product 14698 mGy/cm. 13:59:47 Contrast amount:Isovue 300 161ml. 14:00:09 Maximum allowable dose exceeded? No. 14:00:23 Insertion/operative site no bleeding no hematoma. 14:00:26 Post-op/insertion site Right Femoral artery dressed using a 4 x 4 and Tegaderm. 14:01:02 Post Procedure Pulses reassessed and unchanged 14:01:27 Plavix 600 mg P.O. was administered by Herrera Lu RN; for antiplatelet therapy; 14:02:34 Post-procedure physical assessment completed. ASA score P 2 - A patient with mild systemic disease as per Jez Mendez MD. 14:02:35 Post procedure rhythm: unchanged. 14:02:39 Estimated blood loss: 10 ml 14:02:40 Patient needs reinforcement of post procedure teaching. 14:02:40 Post procedure instruction explained to patient.Patient verbalizes understanding. 14:03:13 Procedure type changed to Cath procedure, Diagnostic procedure, LHC, Coronaries w/Grafts, Aortic Root Angiography, Sedation Charges, Moderate Sedation up to 15 minutes, PCI procedure, Coronary Stent, Coronary Stent Initial 14:03:45 Procedure and supply charges have been captured, reviewed, submitted and are correct. 14:03:48 Procedure Complication : No complications 14:03:51 Vital chart was stopped 14:03:53 See physician's report for complete and final results. 14:03:54 Report given to Pre/Post Procedure Room. 14:03:55 Patient transfered to Pre/Post Procedure Room with Stretcher. 14:03:57 Full Disclosure recording stopped 14:03:57 Procedure ended. 14:04:02 ACC-PCI Only Patient was given prescriptions, or instructed by Jez Mendez MD to start/continue the following medications upon discharge: Aspirin, Plavix 14:04:03 End room use (Document Last) 14:15:59 FEMSTOP Gold (S33778) opened to sterile field. 14:16:53 Femstop placed over the right femoral artery at 125 mmHg. Hemostasis achieved. Intervention Summary Intervention Notes Time ActionType Lesion and Equipment Action# Pressure Duration Attributes Used 13:52:43 Place stent 1st Ob Afia COBRA RX 1 12 00:10 3.5 X 24 Stent Device Usage Item Name Manufacture Quantity Catalog Hospital Part Current Minimal Lot# / Number Charge Number Stock Stock Serial# Code ACIST Syringe Acist 1 23621 504736 273584 884388 20 (78735) [employer] Bag Decanter Microtek 1 2001S 201712 72727 539205 5 (2001S) Medical Inc. Medline Cath Medline 1 [id number] 076690 55809 574497 5 Pack ([id number]) ACIST Hand Acist 1 34525 535370 368029 903227 5 Control Medical (18460) Systems Inc ACIST Manifold Acist 1 90122 877568 129941 700327 5 (17849) Medical Systems Inc Tegaderm 4 x 4 3M 1 1626W 880420 526448 700344 5 (1626W) EMERALD Guide Cardinal 1 502-455 804364 295496 053340 5 Wire (502-455) Health SHEATH 5FR Terumo 1 MZV123 579786 275249 331727 5 [employer] (ZBQ301) DIAGNOSTIC Cardinal 1 TA6971 461919 69713 299710 30 Multipack 5Fr Health catheter set (TD1583) MULTIPACK JL Cardinal 1 197207 5 4.0 5Fr Health catheter MULTIPACK 3DRC Cardinal 1 241385 5 5Fr catheter Health DIAGNOSTIC IM Cardinal 1 [id number] 313221 179943 233112 5 5Fr catheter Health (955326K) MULTIPACK Cardinal 1 115502 5 Pigtail 5 Fr Health catheter INFLATOR Merit Merit 1 GW0644 269319 653568 076562 15 [employer] (GR1465) SHEATH 6FR Terumo 1 OFO814 004587 432364 592526 40 [employer] (UVB648) TUBING High Merit 1 [id number] 714671 28476 464740 10 Pressure Medical Extension Tubing (Mendez) (SS4049Z) BMW 300cm [place] 1 [id number] 283794 581771 844428 5 [place] 2 J Vascular wire (6968271X) GUIDE 6FR Cardinal 1 [id number] 837921 411494 590253 10 XBLAD 3.5 Health catheter (88002810) COBRA RX 3.5 X Celonova 1 024992 [id number] 3812038 6 [id number] 24 stent Biosciences () EXOSEAL 6Fr Cardinal 1 EX600 266480 204364 481040 10 (EX600) Health FEMSTOP Gold St Ricardo 1 E18516 021766 857165 319799 5 (I26543) Signature Audit [place] Stage Time Signature Unsigned Intra-Procedure 12/08/2018 Allen Garsia RT(R) 2:14:26 PM RT(R) 12/08/2018 2:15:37 PM Intra-Procedure 12/08/2018 Allen Garsia 2:17:06 PM RT(R) Signatures Nurse : Herrera Lu RN Signature : Date : Time : Performing Physician : Signature : Jez Mendez MD Date : Time : Monitor : Allen Garsia RT Signature : Date : Time : [facility] [address], [place] [address]
[2018-12-08] MEDS ORDERED: PREDNISONE5 MG PO (11:35)
[2018-12-08] MEDS ORDERED: FOLIC ACID1 MG PO (11:36)
[2018-12-08] MEDS ORDERED: FUROSEMIDE40 MG PO (11:36)
[2018-12-08] MEDS ORDERED: BAYER ASPIRIN325 MG PO (11:37)
[2018-12-08 11:52] VITALS: BP 106/75; Ht 172.7 cm; Wt 96.8 kg
[2018-12-08 11:55] LABS: BASOPHILS 0.1 % (0-2); EOSINOPHILS 0.4 % (0-7); HEMATOCRIT 39.2 % (42.0-54.0); IMMATURE GRANULOCYTES 0.2 % (0-5); LYMPHOCYTES 12.4 % (15-50); MCH 29.6 pg (26.0-34.0); MCHC 33.2 g/dL (31.0-37.0); MCV 89.3 fL (80.0-100.0); MEAN PLATELET VOLUME 9.3 fL (7.4-10.4); MONOCYTES 13.6 % (2-11); NEUTROPHILS 73.3 % (40-80); PLATELET COUNT 194 10x3/uL (130-400); RBC 4.39 10x6/uL (4.20-6.10)
[2018-12-08 12:07] LABS: ALT (SGPT) 19 U/L (10-68); CALC OSMOLALITY 285 mosm/kg (275-300); CALCIUM 9.3 mg/dL (8.5-10.1); CARBON DIOXIDE 37.6 mmol/L (21.0-32.0); CHLORIDE - SERUM 100 mmol/L (98-107); CHOL - HDL RATIO 3.3 ratio (2.3-4.9); CHOLESTEROL, TOTAL 164 mg/dL (0-200); GLUCOSE 107 mg/dL (74-106); HDL CHOLESTEROL 50 mg/dL (32-96); LDL CHOLESTEROL 95 mg/dL (0-100); LDL-HDL RATIO 1.9 ratio (1.5-3.5); POTASSIUM - SERUM 3.7 mmol/L (3.5-5.1); SODIUM 142 mmol/L (136-145); TRIGLYCERIDE 98 mg/dL (30-200); UREA NITROGEN 20 mg/dL (7-18); eGFR NON AFRICAN AMERICAN 77 mL/min (90-120)
[2018-12-08] MEDS ORDERED: PLAVIX75 MG PO (14:19)
[2018-12-08] MEDS ORDERED: BAYER CHEWABLE81 MG PO (14:34)
--- NOTE | 2018-12-08 14:50 | NUR ---
PT HS RECEIVED HYDROCODONE 10MG PO X1 FOR C/O BACK AND BIALT HIP PAIN. FEMSTOP INTACT WITH PRESSURE AT 93. PT CONTINUES TO BEND LEG AND SHIFT HIPS, LIFT HEAD OFF PILLOW, HAS BEEN INSTRUCTED MULTIPLE TIMES REGARDING THIS AND RISK OF BLEEDING. VSS. RESP WITH EASE, AT BEDSIDE, PEDAL PULSES PALPABLE.
--- NOTE | 2018-12-08 14:57 | NUR ---
1432 RECEIVED PT FROM ELECTRIC HOIST OPERATOR. PT IS ALERT, DENIES ANY C/O CHEST PAIN. DOES COMPLAIN OF PAIN TO BACK AND BILAT HIPS, STATES HAS FREQUENT BACK PAIN ISSUES AND LAYING FLAT EXACERBATES IT. PT STATES HE TAKES HYDROCODONE 10MG TABS AT HOME FOR THIS AND REQUESTS DOSE. FEMSTOP INTACT TO RIGHT GROIN WITH PRESSURE AT 93. PEDAL PULSES PALPABLE. HOB IS FLAT. VSS, RESP WITH EASE ON O2 AT 2LPM VIA NC. BED LOCKED AND LOW, CALL LIGHT IN REACH. AT BEDSIDE.
--- NOTE | 2018-12-08 15:27 | NUR ---
PT RESTING WITH EYES CLOSED, RESP WITH EASE ON O2 AT 2LPM VIA NC. NSR, RATE 70, BP IS 110/51. HOB IS FLAT, AT BEDSIDE, CALL LIGHT IN REACH.
--- NOTE | 2018-12-08 15:43 | NUR ---
PT AWAKE, HAS RIGHT LEG BENT AND MOVING HIPS TO TRY TO ROLL OVER. HEMATOMA NOTED DISTAL TO FEMSTOP, FEMSTOP READJUSTED BY YURIY ALONSO, RT AND PRESSURE INCREASED TO 120. PEDAL PULSES PALPABLE.
--- NOTE | 2018-12-08 16:12 | NUR ---
FEMSTOP INTACT, PEDAL PULSES PALPABLE. HOB IS FLAT, DENIES ANY C/O CHEST PAIN.
--- NOTE | 2018-12-08 16:42 | NUR ---
1630 FEMSTOP PRESSURE WEANED BY 30, PEDAL PULSES PALPABLE. HOB IS FLAT. PT IS ALERT, DENIES ANY C/O CHEST PAIN. VSS. CALL LIGHT IN REACH, AT BEDSIDE.
--- NOTE | 2018-12-08 16:44 | NUR ---
FEMSTOP PRESSURE WEANED BY 30 WITH NO BLEEDING OR INCREASE IN HEMATOMA NOTED. PEDAL PULSES PALPABLE. HOB FLAT.
--- NOTE | 2018-12-08 17:15 | NUR ---
1658 FEMSTOP PRESSURE WEANED BY 30, NO BLEEDING OR INCREASE IN HEMATOMA NOTED. 1715 FEMSTOP COMPLETELY WEANED, NO BLEEDING NOTED. PEDAL PULSES PALPABLE. NSR, RATE 64. DENIES ANY C/O CHEST PAIN.
--- NOTE | 2018-12-08 17:37 | NUR ---
HOB ELEVATED 30 DEGREES, SANDWICH AND PO FLUIDS SERVED. DRESSING CDI TO RIGHT GROIN, AREA IS SOFT. PEDAL PULSES PALPABLE. PT DENIES ANY C/O AT THIS TIME.
--- NOTE | 2018-12-08 17:51 | NUR ---
HOB FULLY ELEVATED, DRESSING REMAINS CDI, AREA SOFT. PEDAL PULSES PALPABLE. RESP WITH EASE. DC INSTRUCTIONS REVIEWED WITH PT AND WHO VERBALIZE UNDERSTANDING. PLAVIX PRESCRIPTION TO PT, AND PT AND VERBALIZE UNDERSTANDING TO START THIS MEDICATION TOMORROW.
--- NOTE | 2018-12-08 18:22 | NUR ---
1814 IV DC'D WITH CATH INTACT. PT HAS VOIDED 600 CC CLEAR YELLOW URINE TO URINAL. DENIES ANY C/O PAIN OR NAUSEA. DRESSING REMAINS CDI TO RIGHT GROIN, AREA IS SOFT. PEDAL PULSES PALPABLE. ASSISTED PT WITH DRESSING FOR DC TO HOME. 1819 PT ESCORTED TO PRIVATE AUTO VIA WC BY NURSE WITH DRIVING HIM HOME. HAS OWN O2 ON VIA NC AT 2LPM RESP WITH EASE. IS ALERT AND DENIES ANY C/O. HAS DC INSTRUCTIONS AND ALL PERSONAL BELONGINGS AT TIME OF DC.
== END 2018-12-08 18:20 | disposition home or self-care (01) ==
LOC: D.CATH 11:08
PROVIDERS: ATTEND Internal Medicine Cardiovascular Disease
DX: I25.110 Atherosclerotic heart disease of native coronary artery with unstable angina pectoris (principal); I35.0 Nonrheumatic aortic (valve) stenosis; Z01.812 Encounter for preprocedural laboratory examination

== ENCOUNTER → 2018-12-22 14:09 | Outpatient (CLI) | payer MEDICARE, OTHER ==
[2018-12-08 11:52] VITALS: BMI 32.4
[~2018-12-22 14:09] MED LIST changes: +BAYER ASPIRIN325 MG PO; +BAYER CHEWABLE81 MG PO; +FOLIC ACID1 MG PO; +FUROSEMIDE40 MG PO; +PLAVIX75 MG PO
== END | disposition home or self-care (01) ==
LOC: D.CT 14:09
PROVIDERS: ATTEND Nurse Practitioner
DX: M79.606 Pain in leg, unspecified (principal); I72.4 Aneurysm of artery of lower extremity

== ENCOUNTER → 2019-03-22 15:14 | Outpatient (CLI) | payer MEDICARE, OTHER ==
[2018-12-08 11:52] VITALS: BMI 32.4
[2019-03-22 16:25] LABS: APPEARANCE CLEAR (CLEAR); COLOR YELLOW (YELLOW)
[2019-03-22 16:26] LABS: BACTERIA FEW /hpf (NEGATIVE); BILIRUBIN NEGATIVE (NEGATIVE); GLUCOSE NEGATIVE (NEGATIVE); KETONE NEGATIVE (NEGATIVE); NITRITE NEGATIVE (NEGATIVE); PROTEIN NEGATIVE (NEGATIVE); RED CELLS - URINE OCC /hpf (0-5); UROBILINOGEN NORMAL (NORMAL); WHITE CELLS - URINE 0-5 /hpf (NEGATIVE)
== END | disposition home or self-care (01) ==
LOC: D.LABREF 15:14
PROVIDERS: ATTEND Family Medicine
DX: R30.9 Painful micturition, unspecified (principal)

== ENCOUNTER → 2019-04-18 08:53 | Outpatient (CLI) | payer MEDICARE, OTHER ==
[2018-12-08 11:52] VITALS: BMI 32.4
== END | disposition home or self-care (01) ==
LOC: D.RAD 08:53
PROVIDERS: ATTEND Internal Medicine Gastroenterology
DX: R10.11 Right upper quadrant pain (principal); R14.2 Eructation; K21.9 Gastro-esophageal reflux disease without esophagitis

== ENCOUNTER → 2019-04-27 10:54 | Outpatient (CLI) | payer MEDICARE, OTHER ==
[2018-12-08 11:52] VITALS: BMI 32.4
[~2019-04-27 10:54] MED LIST changes: +ALBUTEROL SULF8.5 GM; +ELIQUIS2.5 MG PO; +HYDROCODON-ACE1 EAC2; +PACERONE200 MG PO; +PULMICORT0.5 MG/21; +VITAMIN E200 UNI1 PO; +ZYRTEC10 MG PO
== END | disposition home or self-care (01) ==
LOC: D.CATH 10:54
PROVIDERS: ATTEND Internal Medicine Cardiovascular Disease
DX: I48.92 Unspecified atrial flutter (principal)

== ENCOUNTER → 2020-01-10 19:38 | Outpatient (CLI) | payer MEDICARE, OTHER ==
[2018-12-08 11:52] VITALS: BMI 32.4
[2020-01-10 19:52] LABS: BASOPHILS 0.3 % (0-2); EOSINOPHILS 0 % (0-7); HEMATOCRIT 38.3 % (42.0-54.0); IMMATURE GRANULOCYTES 0.1 % (0-5); LYMPHOCYTES 15.8 % (15-50); MCH 29.6 pg (26.0-34.0); MCHC 31.3 g/dL (31.0-37.0); MCV 94.3 fL (80.0-100.0); MEAN PLATELET VOLUME 9.6 fL (7.4-10.4); MONOCYTES 11.5 % (2-11); NEUTROPHILS 72.3 % (40-80); PLATELET COUNT 195 10x3/uL (130-400); RBC 4.06 10x6/uL (4.20-6.10); RDW 14.6 % (11.5-14.5); WBC 7.2 10x3/uL (4.8-10.8)
== END | disposition home or self-care (01) ==
LOC: D.LABREF 19:38
PROVIDERS: ATTEND Family Medicine
DX: J43.8 Other emphysema (principal); I11.0 Hypertensive heart disease with heart failure; I50.42 Chronic combined systolic (congestive) and diastolic (congestive) heart failure; N39.0 Urinary tract infection, site not specified

== ENCOUNTER → 2020-07-30 14:14 | Outpatient (CLI) | payer MEDICARE, OTHER ==
[2018-12-08 11:52] VITALS: BMI 32.4
== END | disposition home or self-care (01) ==
LOC: D.LAB 14:14
PROVIDERS: ATTEND Internal Medicine Pulmonary Disease
DX: Z11.52 Encounter for screening for COVID-19 (principal)

== ENCOUNTER → 2020-08-02 10:28 | Outpatient (CLI) | payer MEDICARE, OTHER ==
[2018-12-08 11:52] VITALS: BMI 32.4
== END | disposition home or self-care (01) ==
LOC: D.RT 05-28 13:00 → D.RAD 05-28 13:00 → D.RT 09:00
PROVIDERS: ATTEND Internal Medicine Pulmonary Disease
DX: J44.9 Chronic obstructive pulmonary disease, unspecified (principal); J90 Pleural effusion, not elsewhere classified